=== PATIENT | female | born 1955 | race Caucasian/White ===

== ENCOUNTER 2022-03-01 12:36 | Emergency (ER) | payer MEDICARE, MEDICAID ==
[2022-03-01 13:14] LABS: Bilirubin Negative (Negative); Blood, Urine Negative (Negative); Clarity Clear (Clear); Glucose, Urine (Dipstick) Negative (Negative); Ketone, Urine Negative (Negative); Leukocyte Negative (Negative); Nitrite Negative (Negative); Protein, Urine (Dipstick) Negative (Neg-Trace); Urobilinogen 0.2 mg/dL (Less than 2)
[2022-03-01] MEDS ORDERED: Orphenadrine Citrate 60 MG/2 ML VIAL ONE (13:47)
== END 2022-03-01 14:05 | disposition home or self-care (01) ==
LOC: MADERS 12:36
DX: M54.50 Low back pain, unspecified (principal); I50.9 Heart failure, unspecified; I28.9 Disease of pulmonary vessels, unspecified; Z95.1 Presence of aortocoronary bypass graft
CPT/HCPCS: 81003; 96372; 99283; J2360

== ENCOUNTER 2022-03-02 14:49 | Outpatient (CLI) | payer MEDICARE, MEDICAID | END 2022-03-02 14:50 | disposition home or self-care (01) | LOC: MADRAD 14:49 | PROVIDERS: ATTEND Physician Assistant | DX: M54.9 Dorsalgia, unspecified (principal); M47.816 Spondylosis without myelopathy or radiculopathy, lumbar region; M47.812 Spondylosis without myelopathy or radiculopathy, cervical region | CPT/HCPCS: 72050; 72070; 72100 ==

== ENCOUNTER 2022-09-01 13:21 | Emergency (ER) | payer OTHER, MEDICAID ==
[2022-09-01] MEDS ORDERED: Sodium Chloride 0.9% 250 ML 250 ML ONE (13:53)
[2022-09-01] MEDS ORDERED: Cefepime 2 GM VIAL ONE (13:53)
[2022-09-01] MEDS ORDERED: Sodium Chloride 0.9% 100 ML ONE (13:53)
[2022-09-01 14:03] LABS: #Basophils 0.1 thou/uL (0.0-0.2); #Lymphocytes 0.9 thou/uL (1.20-3.40); #Monocytes 0.5 thou/uL (0.11-0.59); #Neutrophils 7.7 thou/uL (1.40-6.50); %Basophils 1.4 % (0.0-1.0); %Lymphocytes 9.4 % (21.0-51.0); %Monocytes 4.9 % (0.0-10.0); %Neutrophils 84.3 % (42.0-75.0); Anisocytosis SLIGHT = 6-15 cells (100X) (0-5/hpf); Hemoglobin 10.9 g/dL (12.0-16.0); Hypochromia SLIGHT = 6-15 cells (100X) (0-5/hpf); MDiff Complete? YES; Mean Corpuscular HGB CONC 30.3 g/dL (32.0-36.0); Mean Corpuscular Hemoglobin 23.8 pg (27.0-31.0); Mean Corpuscular Volume 78.5 fl (78.0-98.0); Mean Platelet Volume 8.5 fL (7.4-10.4); Platelet Count 208 10x3/uL (130-400); Platelet Morphology Comment Appears Adequate; RBC Distribution Width 16.8 % (11.5-14.5); Red Blood Cell (RBC) Count 4.59 mill/uL (4.20-5.40); White Blood Cell (WBC) Count 9.1 10x3/uL (4.8-10.8)
[2022-09-01 14:09] LABS: Base Excess-Venous -2.1 mmol/L (-2.0 to 3.0); Bicarbonate (HCO3v) 23.3 mmol/L (22.0-28.0); Calcium, Ionized 0.86 mmol/L (1.15-1.33); Chloride 104 mmol/L (98-107); Hemoglobin - Calc 12.3 g/dL (12.0-16.0); Sodium 135 mmol/L (138-145); T. Carbon Dioxide 24.5 mmol/L (22.0-28.0); vO2 Saturation-calc 96.2 % (60.0-85.0)
[2022-09-01 14:12] LABS: ALT (SGPT) 7 U/L (8-55); AST (SGOT) 20 U/L (5-34); Alkaline Phosphatase 115 U/L (40-110); Anion Gap 11 mmol/L (10-20); BUN (Urea Nitrogen) 13 mg/dL (9.8-20.1); Bilirubin, Total 0.7 mg/dL (0.2-1.2); Calc. Creatinine Clearance 0 mL/min (70-130); Calcium 8.7 mg/dL (7.8-10.44); Carbon Dioxide 23 mmol/L (23-31); Chloride 104 mmol/L (98-107); Estimated GFR 86; Globulin 3.9 g/dL (2.4-3.5); Glucose 59 mg/dL (80-115); Magnesium 1.7 mg/dL (1.6-2.6); Potassium 4.4 mmol/L (3.5-5.1); Protein, Total 6.9 g/dL (5.8-8.1); Sodium 134 mmol/L (136-145)
== END 2022-09-01 15:02 | disposition short-term general hospital (02) ==
LOC: MADERS 13:21
DX: I50.9 Heart failure, unspecified (principal); J18.9 Pneumonia, unspecified organism; A41.9 Sepsis, unspecified organism; J96.00 Acute respiratory failure, unspecified whether with hypoxia or hypercapnia; Z79.899 Other long term (current) drug therapy; Z87.891 Personal history of nicotine dependence
CPT/HCPCS: 71045; 80053; 82330; 82435; 82553; 82803; 83605; 83735; 83880; 84132; 84295; 84484; 85014; 85025; 87040; 93005; 96365; 96367; J0692; J3370; J3490; J7050

== ENCOUNTER 2022-09-26 18:49 | Emergency (ER) | payer OTHER, MEDICAID ==
[~2022-09-26 18:49] MED LIST: Iopamidol 370 76% 100 ML VIAL ONE; Sodium Chloride 0.9% 500 ML BAG ONE
[2022-09-26 19:45] LABS: #Basophils 0.1 thou/uL (0.0-0.2); #Lymphocytes 0.4 thou/uL (1.20-3.40); #Monocytes 0.6 thou/uL (0.11-0.59); #Neutrophils 4.1 thou/uL (1.40-6.50); %Basophils 1.1 % (0.0-1.0); %Eosinophils 0.4 % (0.0-10.0); %Lymphocytes 6.9 % (21.0-51.0); %Monocytes 11.2 % (0.0-10.0); %Neutrophils 80.4 % (42.0-75.0); Hemoglobin 7.5 g/dL (12.0-16.0); Mean Corpuscular Hemoglobin 24.3 pg (27.0-31.0); Mean Corpuscular Volume 78.2 fl (78.0-98.0); Mean Platelet Volume 11.2 fL (7.4-10.4); Platelet Count 107 10x3/uL (130-400); RBC Distribution Width 18.6 % (11.5-14.5); Red Blood Cell (RBC) Count 3.09 mill/uL (4.20-5.40); White Blood Cell (WBC) Count 5.1 10x3/uL (4.8-10.8)
[2022-09-26 19:47] LABS: Polychromasia SLIGHT = 2-3 cells (100X) (0-2/hpf)
[2022-09-26 19:48] LABS: Anisocytosis SLIGHT = 6-15 cells (100X) (0-5/hpf); Hypochromia MODERATE=16-30 cells (100X) (0-5/hpf); Platelet Morphology Comment Appears Decreased
[2022-09-26 19:50] LABS: ALT (SGPT) 11 U/L (8-55); AST (SGOT) 10 U/L (5-34); Albumin 2.8 g/dL (3.4-4.8); Alkaline Phosphatase 100 U/L (40-110); Anion Gap 16 mmol/L (10-20); BUN (Urea Nitrogen) 10 mg/dL (9.8-20.1); Bilirubin, Total 0.6 mg/dL (0.2-1.2); CK (CPK) 31 U/L (29-168); Calc. Creatinine Clearance 0 mL/min (70-130); Calcium 8.2 mg/dL (7.8-10.44); Carbon Dioxide 20 mmol/L (23-31); Chloride 98 mmol/L (98-107); Estimated GFR 85; Globulin 2.7 g/dL (2.4-3.5); Glucose 173 mg/dL (80-115); Lipase 7 U/L (8-78); Protein, Total 5.5 g/dL (5.8-8.1); Sodium 130 mmol/L (136-145)
[2022-09-26 20:06] LABS: CKMB 1.4 ng/mL (0-6.6)
[2022-09-26 21:24] LABS: Bilirubin Negative (Negative); Blood, Urine Small (Negative); Glucose, Urine (Dipstick) Negative (Negative); Ketone, Urine Negative (Negative); Leukocyte Moderate (Negative); Nitrite Negative (Negative); Protein, Urine (Dipstick) Trace mg/dL (Neg-Trace); Urobilinogen 0.2 mg/dL (Less than 2); pH, Urine 6.5 (5.0-9.0)
[2022-09-26 21:26] LABS: Clarity Cloudy (Clear); RBC/HPF 0-3 HPF (0-3); WBC/HPF Greater than 50 HPF (0-3)
[2022-09-26 21:27] LABS: Bacteria/HPF 3+ HPF (None Seen)
[2022-09-26] MEDS ORDERED: cefTRIAXone\\ROCEPHIN 1 GM VIAL ONE (21:34)
[2022-09-26] MEDS ORDERED: Sodium Chloride 0.9% 100 ML ONE (21:35)
[2022-09-27 00:18] LABS: CKMB 1.5 ng/mL (0-6.6)
[2022-09-27 03:42] LABS: Troponin I 0.138 ng/mL (< 0.028)
[2022-09-27] MEDS ORDERED: Lisinopril 10 MG TAB ONE (07:51)
[2022-09-27] MEDS ORDERED: Furosemide 40 MG TAB ONE ×3 (07:51→16:22)
[2022-09-27] MEDS ORDERED: Aspirin 325 MG TAB ONE (08:04)
[2022-09-27 08:43] LABS: Hemoglobin 7.9 g/dL (12.0-16.0); Mean Corpuscular HGB CONC 30.5 g/dL (32.0-36.0); Mean Corpuscular Hemoglobin 23.9 pg (27.0-31.0); Mean Corpuscular Volume 78.4 fl (78.0-98.0); Mean Platelet Volume 9.9 fL (7.4-10.4); Platelet Count 114 10x3/uL (130-400); RBC Distribution Width 18.5 % (11.5-14.5); Red Blood Cell (RBC) Count 3.32 mill/uL (4.20-5.40); White Blood Cell (WBC) Count 6.8 10x3/uL (4.8-10.8)
[2022-09-27 08:44] LABS: Manual Diff?? YES
[2022-09-27 08:58] LABS: MDiff Complete? YES; Neutrophil 69 % (42-75)
[2022-09-27 08:59] LABS: Band 5 % (5-11)
[2022-09-27 09:00] LABS: Eosinophils 2 % (0-10)
[2022-09-27 09:01] LABS: Anisocytosis SLIGHT = 6-15 cells (100X) (0-5/hpf)
[2022-09-27 09:02] LABS: Lymphocytes 10 % (21-51); Monocytes 14 % (0-10); Platelet Morphology Comment Appears Decreased
[2022-09-27 10:52] LABS: CKMB 1.6 ng/mL (0-6.6)
[2022-09-27 16:45] LABS: #Basophils 0.1 thou/uL (0.0-0.2); #Eosinphils 0.3 thou/uL (0.0-0.7); #Lymphocytes 0.9 thou/uL (1.20-3.40); #Monocytes 0.5 thou/uL (0.11-0.59); #Neutrophils 4.4 thou/uL (1.40-6.50); %Basophils 1.4 % (0.0-1.0); %Eosinophils 5.5 % (0.0-10.0); %Lymphocytes 13.7 % (21.0-51.0); %Monocytes 8.7 % (0.0-10.0); %Neutrophils 70.7 % (42.0-75.0); Anisocytosis SLIGHT = 6-15 cells (100X) (0-5/hpf); Hemoglobin 7.8 g/dL (12.0-16.0); Hypochromia SLIGHT = 6-15 cells (100X) (0-5/hpf); MDiff Complete? YES; Mean Corpuscular HGB CONC 30.9 g/dL (32.0-36.0); Mean Corpuscular Hemoglobin 24.1 pg (27.0-31.0); Mean Platelet Volume 10.6 fL (7.4-10.4); Microcytosis SLIGHT = 6-15 cells (100X) (0-5/hpf); Platelet Count 118 10x3/uL (130-400); Platelet Morphology Comment Appears Decreased; RBC Distribution Width 18.5 % (11.5-14.5); Red Blood Cell (RBC) Count 3.25 mill/uL (4.20-5.40); White Blood Cell (WBC) Count 6.2 10x3/uL (4.8-10.8)
[2022-09-27 16:49] LABS: ALT (SGPT) 11 U/L (8-55); AST (SGOT) 10 U/L (5-34); Albumin 2.8 g/dL (3.4-4.8); Alkaline Phosphatase 99 U/L (40-110); Anion Gap 16 mmol/L (10-20); BUN (Urea Nitrogen) 9 mg/dL (9.8-20.1); Bilirubin, Total 0.4 mg/dL (0.2-1.2); Calc. Creatinine Clearance 0 mL/min (70-130); Calcium 8.2 mg/dL (7.8-10.44); Carbon Dioxide 21 mmol/L (23-31); Chloride 102 mmol/L (98-107); Estimated GFR 86; Globulin 2.8 g/dL (2.4-3.5); Glucose 132 mg/dL (80-115); Magnesium 1.6 mg/dL (1.6-2.6); Potassium 3.7 mmol/L (3.5-5.1); Protein, Total 5.6 g/dL (5.8-8.1); Sodium 135 mmol/L (136-145)
[2022-09-27 17:15] LABS: Troponin I 0.124 ng/mL (< 0.028)
[2022-09-27 17:28] LABS: Base Excess-Venous -1.6 mmol/L (-2.0 to 3.0); Bicarbonate (HCO3v) 23.5 mmol/L (22.0-28.0); CO2 Tension (PvCO2) 40.6 mmHg (42.0-51.0); Chloride 98 mmol/L (98-107); Hemoglobin - Calc 8.7 g/dL (12.0-16.0); Potassium 3.4 mmol/L (3.5-5.1); Sodium 132 mmol/L (138-145); T. Carbon Dioxide 24.8 mmol/L (22.0-28.0); vO2 Saturation-calc 72.2 % (60.0-85.0)
[2022-09-27 17:29] LABS: Calcium, Ionized 0.91 mmol/L (1.15-1.33)
[2022-09-27 19:13] LABS: SARS-CoV-2 NAA Rapid Test Not Detected (NotDetected)
== END 2022-09-27 18:45 | disposition short-term general hospital (02) ==
LOC: MADERS 18:49
DX: S61.412A Laceration without foreign body of left hand, initial encounter (principal); S61.411A Laceration without foreign body of right hand, initial encounter; S00.83XA Contusion of other part of head, initial encounter; S30.1XXA Contusion of abdominal wall, initial encounter; D64.9 Anemia, unspecified; I50.9 Heart failure, unspecified; N39.0 Urinary tract infection, site not specified; Z87.891 Personal history of nicotine dependence; Z20.822 Contact with and (suspected) exposure to COVID-19; Z79.899 Other long term (current) drug therapy; W01.10XA Fall on same level from slipping, tripping and stumbling with subsequent striking against unspecified object, initial encounter
CPT/HCPCS: 70450; 70486; 71045; 71260; 72125; 74177; 80053; 82330; 82435; 82550; 82553; 82803; 83605; 83690; 83735; 83880; 84132; 84295; 84484 ×2; 85014; 85025 ×2; 93005 ×2; U0002; 36415; 81003; 81015; 82274; 96365; G0390; J0696; J3490; J7030; J7050; Q9967

== ENCOUNTER 2022-10-30 15:31 | Inpatient (IN) | payer OTHER, MEDICAID ==
[2022-10-30] MEDS ORDERED: Bisacodyl 5 MG TAB PO PRN (17:35)
[2022-10-30] MEDS ORDERED: Acetaminophen 325 MG TAB PO PRN (17:35)
[2022-10-30] MEDS ORDERED: Ipratropium/Albuterol 3 ML NEB NEB PRN (17:35)
[2022-10-30] MEDS ORDERED: Calcium Carbonate 500 MG ChewTAB PO PRN (17:35)
[2022-10-30 17:57] VITALS: BMI 27.5
[2022-10-30 19:51] VITALS: TEMP 97.6
[2022-10-30] MEDS: Rosuvastatin 10 MG TAB PO SCH (20:59)
[2022-10-30] MEDS: Hydroxychloroquine Sulfate 200 MG TAB PO SCH (21:00)
[2022-10-31 02:12] VITALS: BP 96/53
[2022-10-31 02:26] LABS: #Basophils 0.2 thou/uL (0.0-0.2); #Monocytes 0.7 thou/uL (0.11-0.59); #Neutrophils 3.7 thou/uL (1.40-6.50); %Basophils 2.4 % (0.0-1.0); %Eosinophils 0.3 % (0.0-10.0); %Lymphocytes 30.7 % (21.0-51.0); %Monocytes 10.2 % (0.0-10.0); %Neutrophils 56.4 % (42.0-75.0); Anisocytosis MODERATE=16-30 cells (100X) (0-5/hpf); Hemoglobin 7.7 g/dL (12.0-16.0); Hypochromia SLIGHT = 6-15 cells (100X) (0-5/hpf); MDiff Complete? YES; Mean Corpuscular HGB CONC 30.4 g/dL (32.0-36.0); Mean Corpuscular Hemoglobin 24.3 pg (27.0-31.0); Mean Corpuscular Volume 79.8 fl (78.0-98.0); Mean Platelet Volume 8.4 fL (7.4-10.4); Microcytosis SLIGHT = 6-15 cells (100X) (0-5/hpf); Platelet Count 208 10x3/uL (130-400); Polychromasia SLIGHT = 2-3 cells (100X) (0-2/hpf); RBC Distribution Width 18.9 % (11.5-14.5); Red Blood Cell (RBC) Count 3.19 mill/uL (4.20-5.40); White Blood Cell (WBC) Count 6.6 10x3/uL (4.8-10.8)
[2022-10-31] MEDS ORDERED: Leflunomide 10 mg Tablet PO SCH (09:00)
[2022-10-31] MEDS ORDERED: glipiZIDE 5 MG TAB PO SCH (09:00)
[2022-10-31] MEDS ORDERED: DULoxetine 20 MG CAP PO SCH (09:00)
[2022-10-31] MEDS ORDERED: Ezetimibe 10 MG TAB PO SCH (09:00)
[2022-10-31] MEDS ORDERED: Potassium Chloride 20 MEQ TAB PO SCH (09:00)
[2022-10-31] MEDS ORDERED: Aspirin Chewable 81 MG TAB PO SCH (09:00)
[2022-10-31] MEDS ORDERED: predniSONE 5 MG TAB PO SCH (09:00)
[2022-10-31] MEDS ORDERED: Furosemide 40 MG TAB PO SCH (09:00)
[2022-10-31] MEDS ORDERED: Lisinopril 5 MG TAB PO SCH (09:00)
[2022-10-31] MEDS ORDERED: Magnesium Oxide 400 MG TAB PO SCH (09:00)
[2022-10-31] MEDS ORDERED: Prasugrel 10 MG TAB PO SCH (09:00)
[2022-10-31] MEDS ORDERED: Docusate 100 MG CAP PO SCH (09:00)
== END 2022-10-31 05:13 | disposition swing bed (61) | DRG 948 ==
LOC: MADMS 15:57
PROVIDERS: ADMIT Family Medicine; ATTEND Family Medicine
DX: R53.1 Weakness (principal); I50.22 Chronic systolic (congestive) heart failure; I11.0 Hypertensive heart disease with heart failure; M06.9 Rheumatoid arthritis, unspecified; E11.51 Type 2 diabetes mellitus with diabetic peripheral angiopathy without gangrene; I25.10 Atherosclerotic heart disease of native coronary artery without angina pectoris; Z88.6 Allergy status to analgesic agent; Z88.5 Allergy status to narcotic agent; Z88.8 Allergy status to other drugs, medicaments and biological substances; Z79.899 Other long term (current) drug therapy; Z79.82 Long term (current) use of aspirin; Z79.52 Long term (current) use of systemic steroids; Z95.1 Presence of aortocoronary bypass graft; Z90.49 Acquired absence of other specified parts of digestive tract; Z87.440 Personal history of urinary (tract) infections; Z90.711 Acquired absence of uterus with remaining cervical stump; Z87.891 Personal history of nicotine dependence
CPT/HCPCS: 36416; 80053; 83735; 86850; 86900; 86901; 87324; 87449; 87493; C9113; J7030

== ENCOUNTER 2022-10-31 05:22 | Emergency (ER) | payer OTHER, MEDICAID ==
[2022-10-31 05:48] LABS: Hemoglobin 7.3 g/dL (12.0-16.0)
[2022-10-31] MEDS ORDERED: Pantoprazole 40 MG VIAL ONE (06:20)
[2022-10-31] MEDS ORDERED: Sodium Chloride 0.9% 50 ML ONE (06:21)
[2022-10-31] MEDS ORDERED: Sodium Chloride 0.9% 500 ML BAG ONE (06:42)
[2022-10-31 07:32] LABS: AST (SGOT) 12 U/L (5-34); Albumin 2.7 g/dL (3.4-4.8); Anion Gap 12 mmol/L (10-20); BUN (Urea Nitrogen) 13 mg/dL (9.8-20.1); Bilirubin, Total 0.4 mg/dL (0.2-1.2); Calc. Creatinine Clearance 0 mL/min (70-130); Calcium 8.5 mg/dL (7.8-10.44); Carbon Dioxide 25 mmol/L (23-31); Chloride 108 mmol/L (98-107); Estimated GFR 95; Globulin 2.2 g/dL (2.4-3.5); Glucose 139 mg/dL (80-115); Potassium 4.2 mmol/L (3.5-5.1); Protein, Total 4.9 g/dL (5.8-8.1); Sodium 141 mmol/L (136-145)
[2022-10-31 07:39] LABS: ALT (SGPT) 9 U/L (8-55); Alkaline Phosphatase 78 U/L (40-110)
[2022-10-31 07:40] LABS: Magnesium 1.6 mg/dL (1.6-2.6)
== END 2022-10-31 07:18 | disposition short-term general hospital (02) ==
LOC: MADERS 05:22
DX: K92.2 Gastrointestinal hemorrhage, unspecified (principal); D64.9 Anemia, unspecified; E11.9 Type 2 diabetes mellitus without complications; J44.9 Chronic obstructive pulmonary disease, unspecified; I11.0 Hypertensive heart disease with heart failure; I50.9 Heart failure, unspecified; Z87.891 Personal history of nicotine dependence; Z95.1 Presence of aortocoronary bypass graft; Z79.84 Long term (current) use of oral hypoglycemic drugs; Z79.899 Other long term (current) drug therapy
CPT/HCPCS: 80053; 83735; 86850; 86900; 86901; 87324; 87449; 87493; C9113

== ENCOUNTER 2022-11-09 15:44 | Inpatient (IN) | payer OTHER, MEDICAID ==
[2022-11-09] MEDS ORDERED: Ipratropium/Albuterol 3 ML NEB NEB PRN (17:06)
[2022-11-09] MEDS ORDERED: Calcium Carbonate 500 MG ChewTAB PO PRN (17:06)
[2022-11-09] MEDS ORDERED: Bisacodyl 5 MG TAB PO PRN (17:06)
[2022-11-09] MEDS: Hydroxychloroquine Sulfate 200 MG TAB PO SCH (21:49)
[2022-11-09] MEDS: Rosuvastatin 10 MG TAB PO SCH (21:49)
[2022-11-10] MEDS: Potassium Chloride 20 MEQ TAB PO SCH (09:08)
[2022-11-10] MEDS: Leflunomide 10 mg Tablet PO SCH (09:08)
[2022-11-10] MEDS: Ezetimibe 10 MG TAB PO SCH (09:08)
[2022-11-10] MEDS: Lisinopril 5 MG TAB PO SCH (09:08)
[2022-11-10] MEDS: Magnesium Oxide 400 MG TAB PO SCH (09:09)
[2022-11-10] MEDS: glipiZIDE 5 MG TAB PO SCH (09:09)
[2022-11-10] MEDS: Hydroxychloroquine Sulfate 200 MG TAB PO SCH ×2 (09:10→20:19)
[2022-11-10] MEDS: Docusate 100 MG CAP PO SCH (09:10)
[2022-11-10] MEDS: Furosemide 40 MG TAB PO SCH (09:10)
[2022-11-10] MEDS: predniSONE 5 MG TAB PO SCH (09:10)
[2022-11-10] MEDS: DULoxetine 20 MG CAP PO SCH (09:10)
[2022-11-10] MEDS: Aspirin Chewable 81 MG TAB PO SCH (09:10)
[2022-11-10] MEDS: Prasugrel 10 MG TAB PO SCH (09:10)
[2022-11-10] MEDS: Rosuvastatin 10 MG TAB PO SCH (20:18)
[2022-11-11] MEDS: glipiZIDE 5 MG TAB PO SCH (08:00)
[2022-11-11] MEDS: Potassium Chloride 20 MEQ TAB PO SCH (08:00)
[2022-11-11] MEDS: DULoxetine 20 MG CAP PO SCH (08:00)
[2022-11-11] MEDS: predniSONE 5 MG TAB PO SCH (08:00)
[2022-11-11] MEDS: Prasugrel 10 MG TAB PO SCH (08:00)
[2022-11-11] MEDS: Ezetimibe 10 MG TAB PO SCH (08:00)
[2022-11-11] MEDS: Aspirin Chewable 81 MG TAB PO SCH (08:01)
[2022-11-11] MEDS: Lisinopril 5 MG TAB PO SCH (08:01)
[2022-11-11] MEDS: Furosemide 40 MG TAB PO SCH (08:04)
[2022-11-11] MEDS: Magnesium Oxide 400 MG TAB PO SCH (08:04)
[2022-11-11] MEDS: Hydroxychloroquine Sulfate 200 MG TAB PO SCH ×2 (08:04→20:27)
[2022-11-11] MEDS: Leflunomide 10 mg Tablet PO SCH (08:04)
[2022-11-11] MEDS: Docusate 100 MG CAP PO SCH (08:05)
[2022-11-11] MEDS ORDERED: Dextrose 50% Abboject 50 ML SYRINGE IVP PRN (15:15)
[2022-11-11] MEDS ORDERED: Dextrose 5% in Water 1,000 ML IV PRN (15:15)
[2022-11-11] MEDS ORDERED: Dextrose 50% Abboject 50 ML SYRINGE SLOW IVP PRN (15:34)
[2022-11-11] MEDS ORDERED: HumaLOG 300 UNITS/3 ML VIAL SC PRN ×2 (15:34)
[2022-11-11] MEDS: Rosuvastatin 10 MG TAB PO SCH (20:26)
[2022-11-11] MEDS: Dextrose 5% in Water 1,000 ML IV SCH ×2 (21:30→22:11)
[2022-11-12] MEDS: Furosemide 40 MG TAB PO SCH (09:18)
[2022-11-12] MEDS: Potassium Chloride 20 MEQ TAB PO SCH (09:18)
[2022-11-12] MEDS: Prasugrel 10 MG TAB PO SCH (09:18)
[2022-11-12] MEDS: Aspirin Chewable 81 MG TAB PO SCH (09:18)
[2022-11-12] MEDS: Magnesium Oxide 400 MG TAB PO SCH (09:18)
[2022-11-12] MEDS: DULoxetine 20 MG CAP PO SCH (09:18)
[2022-11-12] MEDS: Ezetimibe 10 MG TAB PO SCH (09:18)
[2022-11-12] MEDS: Lisinopril 5 MG TAB PO SCH (09:19)
[2022-11-12] MEDS: predniSONE 5 MG TAB PO SCH (09:19)
[2022-11-12] MEDS: Hydroxychloroquine Sulfate 200 MG TAB PO SCH ×2 (09:19→21:24)
[2022-11-12] MEDS: Leflunomide 10 mg Tablet PO SCH (09:19)
[2022-11-12] MEDS: Docusate 100 MG CAP PO SCH (09:19)
[2022-11-12] MEDS ORDERED: Dextrose 5% in Water 1,000 ML IV SCH (12:15)
[2022-11-12] MEDS: Rosuvastatin 10 MG TAB PO SCH (21:24)
[2022-11-13] MEDS: Hydroxychloroquine Sulfate 200 MG TAB PO SCH ×2 (08:57→20:38)
[2022-11-13] MEDS: Prasugrel 10 MG TAB PO SCH (08:57)
[2022-11-13] MEDS: Aspirin Chewable 81 MG TAB PO SCH (08:57)
[2022-11-13] MEDS: Potassium Chloride 20 MEQ TAB PO SCH (08:57)
[2022-11-13] MEDS: Leflunomide 10 mg Tablet PO SCH (08:58)
[2022-11-13] MEDS: Furosemide 40 MG TAB PO SCH (08:58)
[2022-11-13] MEDS: Docusate 100 MG CAP PO SCH (08:58)
[2022-11-13] MEDS: Magnesium Oxide 400 MG TAB PO SCH (08:58)
[2022-11-13] MEDS: Ezetimibe 10 MG TAB PO SCH (08:58)
[2022-11-13] MEDS: predniSONE 5 MG TAB PO SCH (08:58)
[2022-11-13] MEDS: DULoxetine 20 MG CAP PO SCH (08:58)
[2022-11-13] MEDS: Lisinopril 5 MG TAB PO SCH (09:02)
[2022-11-13] MEDS: Acetaminophen 325 MG TAB PO PRN (18:24)
[2022-11-13] MEDS: Rosuvastatin 10 MG TAB PO SCH (20:38)
[2022-11-14] MEDS: DULoxetine 20 MG CAP PO SCH (08:13)
[2022-11-14] MEDS: Furosemide 40 MG TAB PO SCH (08:13)
[2022-11-14] MEDS: Potassium Chloride 20 MEQ TAB PO SCH (08:13)
[2022-11-14] MEDS: Aspirin Chewable 81 MG TAB PO SCH (08:13)
[2022-11-14] MEDS: Ezetimibe 10 MG TAB PO SCH (08:13)
[2022-11-14] MEDS: Magnesium Oxide 400 MG TAB PO SCH (08:13)
[2022-11-14] MEDS: Leflunomide 10 mg Tablet PO SCH (08:14)
[2022-11-14] MEDS: Hydroxychloroquine Sulfate 200 MG TAB PO SCH ×2 (08:14→20:30)
[2022-11-14] MEDS: predniSONE 5 MG TAB PO SCH (08:14)
[2022-11-14] MEDS: Lisinopril 5 MG TAB PO SCH (08:14)
[2022-11-14] MEDS: Docusate 100 MG CAP PO SCH (08:14)
[2022-11-14] MEDS: Prasugrel 10 MG TAB PO SCH (08:14)
[2022-11-14] MEDS: Rosuvastatin 10 MG TAB PO SCH (20:30)
[2022-11-14] MEDS: Acetaminophen 325 MG TAB PO PRN (20:30)
[2022-11-15 05:18] LABS: #Basophils 0.2 thou/uL (0.0-0.2); #Lymphocytes 1.6 thou/uL (1.20-3.40); #Monocytes 0.8 thou/uL (0.11-0.59); #Neutrophils 5.3 thou/uL (1.40-6.50); %Eosinophils 0.1 % (0.0-10.0); %Lymphocytes 20.5 % (21.0-51.0); %Monocytes 10.1 % (0.0-10.0); %Neutrophils 67.4 % (42.0-75.0); Hemoglobin 9.3 g/dL (12.0-16.0); Mean Corpuscular HGB CONC 32.2 g/dL (32.0-36.0); Mean Corpuscular Hemoglobin 25.5 pg (27.0-31.0); Mean Corpuscular Volume 79.1 fl (78.0-98.0); Mean Platelet Volume 8.4 fL (7.4-10.4); Platelet Count 252 10x3/uL (130-400); RBC Distribution Width 17.9 % (11.5-14.5); Red Blood Cell (RBC) Count 3.64 mill/uL (4.20-5.40); White Blood Cell (WBC) Count 7.9 10x3/uL (4.8-10.8)
[2022-11-15 05:51] LABS: ALT (SGPT) 18 U/L (8-55); AST (SGOT) 12 U/L (5-34); Albumin 3.5 g/dL (3.4-4.8); Alkaline Phosphatase 74 U/L (40-110); Anion Gap 16 mmol/L (10-20); BUN (Urea Nitrogen) 20 mg/dL (9.8-20.1); Bilirubin, Total 0.6 mg/dL (0.2-1.2); Calc. Creatinine Clearance 66 mL/min (70-130); Calcium 8.9 mg/dL (7.8-10.44); Carbon Dioxide 21 mmol/L (23-31); Chloride 104 mmol/L (98-107); Estimated GFR 71; Globulin 2.6 g/dL (2.4-3.5); Glucose 104 mg/dL (80-115); Potassium 3.4 mmol/L (3.5-5.1); Protein, Total 6.1 g/dL (5.8-8.1); Sodium 138 mmol/L (136-145)
[2022-11-15 07:00] LABS: Troponin I 0.038 ng/mL (< 0.028)
[2022-11-15] MEDS: Hydroxychloroquine Sulfate 200 MG TAB PO SCH ×2 (08:16→20:17)
[2022-11-15] MEDS: Prasugrel 10 MG TAB PO SCH (08:16)
[2022-11-15] MEDS: Magnesium Oxide 400 MG TAB PO SCH (08:16)
[2022-11-15] MEDS: Leflunomide 10 mg Tablet PO SCH (08:16)
[2022-11-15] MEDS: Aspirin Chewable 81 MG TAB PO SCH (08:16)
[2022-11-15] MEDS: DULoxetine 20 MG CAP PO SCH (08:16)
[2022-11-15] MEDS: predniSONE 5 MG TAB PO SCH (08:17)
[2022-11-15] MEDS: Ezetimibe 10 MG TAB PO SCH (08:17)
[2022-11-15] MEDS: Potassium Chloride 10 MEQ TAB PO SCH (08:17)
[2022-11-15] MEDS: Furosemide 20 MG TAB PO SCH (08:17)
[2022-11-15] MEDS: Docusate 100 MG CAP PO SCH (08:18)
[2022-11-15] MEDS: Lisinopril 5 MG TAB PO SCH (08:23)
[2022-11-15] MEDS: Acetaminophen 325 MG TAB PO PRN (09:11)
[2022-11-15 10:04] LABS: Troponin I 0.034 ng/mL (< 0.028)
[2022-11-15] MEDS: Rosuvastatin 10 MG TAB PO SCH (20:17)
[2022-11-16] MEDS: predniSONE 5 MG TAB PO SCH (08:32)
[2022-11-16] MEDS: Aspirin Chewable 81 MG TAB PO SCH (08:32)
[2022-11-16] MEDS: Ezetimibe 10 MG TAB PO SCH (08:32)
[2022-11-16] MEDS: Hydroxychloroquine Sulfate 200 MG TAB PO SCH ×2 (08:33→20:59)
[2022-11-16] MEDS: DULoxetine 20 MG CAP PO SCH (08:33)
[2022-11-16] MEDS: Potassium Chloride 10 MEQ TAB PO SCH (08:33)
[2022-11-16] MEDS: Docusate 100 MG CAP PO SCH (08:33)
[2022-11-16] MEDS: Prasugrel 10 MG TAB PO SCH (08:33)
[2022-11-16] MEDS: Lisinopril 5 MG TAB PO SCH (08:33)
[2022-11-16] MEDS: Leflunomide 10 mg Tablet PO SCH (08:33)
[2022-11-16] MEDS: Magnesium Oxide 400 MG TAB PO SCH (08:33)
[2022-11-16] MEDS: Furosemide 20 MG TAB PO SCH (10:43)
[2022-11-16] MEDS: Rosuvastatin 10 MG TAB PO SCH (20:59)
[2022-11-17] MEDS: predniSONE 5 MG TAB PO SCH (08:23)
[2022-11-17] MEDS: Aspirin Chewable 81 MG TAB PO SCH (08:23)
[2022-11-17] MEDS: Potassium Chloride 10 MEQ TAB PO SCH (08:23)
[2022-11-17] MEDS: Hydroxychloroquine Sulfate 200 MG TAB PO SCH ×2 (08:24→20:31)
[2022-11-17] MEDS: Leflunomide 10 mg Tablet PO SCH (08:24)
[2022-11-17] MEDS: Ezetimibe 10 MG TAB PO SCH (08:24)
[2022-11-17] MEDS: Prasugrel 10 MG TAB PO SCH (08:24)
[2022-11-17] MEDS: DULoxetine 20 MG CAP PO SCH (08:24)
[2022-11-17] MEDS: Magnesium Oxide 400 MG TAB PO SCH (08:24)
[2022-11-17] MEDS: Docusate 100 MG CAP PO SCH (08:25)
[2022-11-17] MEDS ORDERED: Furosemide 20 MG TAB PO SCH (09:00)
[2022-11-17] MEDS: Lisinopril 5 MG TAB PO SCH (13:31)
[2022-11-17] MEDS: Rosuvastatin 10 MG TAB PO SCH (20:32)
[2022-11-17] MEDS: Metoprolol Tartrate 50 MG TAB PO SCH (22:27)
[2022-11-18] MEDS: Prasugrel 10 MG TAB PO SCH (08:40)
[2022-11-18] MEDS: Ezetimibe 10 MG TAB PO SCH (08:40)
[2022-11-18] MEDS: Aspirin Chewable 81 MG TAB PO SCH (08:40)
[2022-11-18] MEDS: Potassium Chloride 10 MEQ TAB PO SCH (08:41)
[2022-11-18] MEDS: predniSONE 5 MG TAB PO SCH (08:41)
[2022-11-18] MEDS: Magnesium Oxide 400 MG TAB PO SCH (08:41)
[2022-11-18] MEDS: Hydroxychloroquine Sulfate 200 MG TAB PO SCH ×2 (08:42→21:22)
[2022-11-18] MEDS: Docusate 100 MG CAP PO SCH (08:42)
[2022-11-18] MEDS: DULoxetine 20 MG CAP PO SCH (08:42)
[2022-11-18] MEDS: Leflunomide 10 mg Tablet PO SCH (08:43)
[2022-11-18] MEDS: Metoprolol Tartrate 50 MG TAB PO SCH (08:44)
[2022-11-18] MEDS: Furosemide 20 MG TAB PO SCH (12:07)
[2022-11-18] MEDS: Rosuvastatin 10 MG TAB PO SCH (21:22)
[2022-11-19] MEDS: Metoprolol Tartrate 50 MG TAB PO SCH (00:21)
[2022-11-19] MEDS: predniSONE 5 MG TAB PO SCH (09:10)
[2022-11-19] MEDS: Hydroxychloroquine Sulfate 200 MG TAB PO SCH ×2 (09:10→20:33)
[2022-11-19] MEDS: Aspirin Chewable 81 MG TAB PO SCH (09:10)
[2022-11-19] MEDS: DULoxetine 20 MG CAP PO SCH (09:10)
[2022-11-19] MEDS: Prasugrel 10 MG TAB PO SCH (09:10)
[2022-11-19] MEDS: Magnesium Oxide 400 MG TAB PO SCH (09:10)
[2022-11-19] MEDS: Metoprolol Tartrate 25 MG TAB PO SCH ×2 (09:11→20:33)
[2022-11-19] MEDS: Leflunomide 10 mg Tablet PO SCH (09:11)
[2022-11-19] MEDS: Potassium Chloride 10 MEQ TAB PO SCH (09:11)
[2022-11-19] MEDS: Docusate 100 MG CAP PO SCH (09:11)
[2022-11-19] MEDS: Ezetimibe 10 MG TAB PO SCH (09:11)
[2022-11-19] MEDS: Furosemide 20 MG TAB PO SCH (12:24)
[2022-11-19] MEDS: Rosuvastatin 10 MG TAB PO SCH (20:33)
[2022-11-20] MEDS: Aspirin Chewable 81 MG TAB PO SCH (08:30)
[2022-11-20] MEDS: Hydroxychloroquine Sulfate 200 MG TAB PO SCH ×2 (08:30→20:31)
[2022-11-20] MEDS: Ezetimibe 10 MG TAB PO SCH (08:30)
[2022-11-20] MEDS: Potassium Chloride 10 MEQ TAB PO SCH (08:30)
[2022-11-20] MEDS: Prasugrel 10 MG TAB PO SCH (08:30)
[2022-11-20] MEDS: Magnesium Oxide 400 MG TAB PO SCH (08:30)
[2022-11-20] MEDS: Metoprolol Tartrate 25 MG TAB PO SCH ×2 (08:30→20:32)
[2022-11-20] MEDS: DULoxetine 20 MG CAP PO SCH (08:31)
[2022-11-20] MEDS: Docusate 100 MG CAP PO SCH (08:31)
[2022-11-20] MEDS: Leflunomide 10 mg Tablet PO SCH (08:31)
[2022-11-20] MEDS: predniSONE 5 MG TAB PO SCH (08:31)
[2022-11-20] MEDS: Furosemide 20 MG TAB PO SCH (13:10)
[2022-11-20] MEDS: Rosuvastatin 10 MG TAB PO SCH (20:35)
[2022-11-21] MEDS: Magnesium Oxide 400 MG TAB PO SCH (09:00)
[2022-11-21] MEDS: Aspirin Chewable 81 MG TAB PO SCH (09:00)
[2022-11-21] MEDS: Ezetimibe 10 MG TAB PO SCH (09:00)
[2022-11-21] MEDS: Potassium Chloride 10 MEQ TAB PO SCH (09:00)
[2022-11-21] MEDS: DULoxetine 20 MG CAP PO SCH (09:00)
[2022-11-21] MEDS: Leflunomide 10 mg Tablet PO SCH (09:00)
[2022-11-21] MEDS: predniSONE 5 MG TAB PO SCH (09:00)
[2022-11-21] MEDS: Hydroxychloroquine Sulfate 200 MG TAB PO SCH ×2 (09:00→19:58)
[2022-11-21] MEDS: Docusate 100 MG CAP PO SCH (09:00)
[2022-11-21] MEDS: Prasugrel 10 MG TAB PO SCH (09:00)
[2022-11-21] MEDS: Acetaminophen 325 MG TAB PO PRN (09:01)
[2022-11-21] MEDS: Metoprolol Tartrate 25 MG TAB PO SCH ×2 (09:08→20:02)
[2022-11-21] MEDS: Furosemide 20 MG TAB PO SCH (12:56)
[2022-11-21] MEDS: Rosuvastatin 10 MG TAB PO SCH (19:58)
[2022-11-22] MEDS: Ezetimibe 10 MG TAB PO SCH (08:37)
[2022-11-22] MEDS: Hydroxychloroquine Sulfate 200 MG TAB PO SCH ×2 (08:38→21:11)
[2022-11-22] MEDS: DULoxetine 20 MG CAP PO SCH (08:38)
[2022-11-22] MEDS: Leflunomide 10 mg Tablet PO SCH (08:38)
[2022-11-22] MEDS: Prasugrel 10 MG TAB PO SCH (08:38)
[2022-11-22] MEDS: Aspirin Chewable 81 MG TAB PO SCH (08:38)
[2022-11-22] MEDS: Metoprolol Tartrate 25 MG TAB PO SCH ×2 (08:38→21:12)
[2022-11-22] MEDS: Magnesium Oxide 400 MG TAB PO SCH (08:38)
[2022-11-22] MEDS: Potassium Chloride 10 MEQ TAB PO SCH (08:38)
[2022-11-22] MEDS: predniSONE 5 MG TAB PO SCH (08:38)
[2022-11-22] MEDS: Docusate 100 MG CAP PO SCH (08:39)
[2022-11-22] MEDS ORDERED: Loratadine 10 MG TAB PO SCH (10:45)
[2022-11-22] MEDS: Fluticasone Propionate Nasal Spray 16 gm Bottle NASAL PRN (11:54)
[2022-11-22] MEDS: Furosemide 20 MG TAB PO SCH (11:55)
[2022-11-22] MEDS: Rosuvastatin 10 MG TAB PO SCH (21:11)
[2022-11-23] MEDS: Hydroxychloroquine Sulfate 200 MG TAB PO SCH ×2 (08:19→20:25)
[2022-11-23] MEDS: Docusate 100 MG CAP PO SCH (08:19)
[2022-11-23] MEDS: Aspirin Chewable 81 MG TAB PO SCH (08:19)
[2022-11-23] MEDS: Loratadine 10 MG TAB PO SCH (08:19)
[2022-11-23] MEDS: Prasugrel 10 MG TAB PO SCH (08:19)
[2022-11-23] MEDS: DULoxetine 20 MG CAP PO SCH (08:19)
[2022-11-23] MEDS: predniSONE 5 MG TAB PO SCH (08:19)
[2022-11-23] MEDS: Leflunomide 10 mg Tablet PO SCH (08:20)
[2022-11-23] MEDS: Ezetimibe 10 MG TAB PO SCH (08:20)
[2022-11-23] MEDS: Potassium Chloride 10 MEQ TAB PO SCH (08:20)
[2022-11-23] MEDS: Magnesium Oxide 400 MG TAB PO SCH (08:20)
[2022-11-23] MEDS: Metoprolol Tartrate 25 MG TAB PO SCH ×2 (08:20→20:25)
[2022-11-23] MEDS: Furosemide 20 MG TAB PO SCH (12:59)
[2022-11-23] MEDS: Rosuvastatin 10 MG TAB PO SCH (20:25)
[2022-11-24] MEDS: Magnesium Oxide 400 MG TAB PO SCH (08:30)
[2022-11-24] MEDS: Leflunomide 10 mg Tablet PO SCH (08:30)
[2022-11-24] MEDS: Ezetimibe 10 MG TAB PO SCH (08:30)
[2022-11-24] MEDS: Potassium Chloride 10 MEQ TAB PO SCH (08:30)
[2022-11-24] MEDS: Hydroxychloroquine Sulfate 200 MG TAB PO SCH ×2 (08:30→20:39)
[2022-11-24] MEDS: Docusate 100 MG CAP PO SCH (08:30)
[2022-11-24] MEDS: predniSONE 5 MG TAB PO SCH (08:30)
[2022-11-24] MEDS: Loratadine 10 MG TAB PO SCH (08:30)
[2022-11-24] MEDS: Aspirin Chewable 81 MG TAB PO SCH (08:30)
[2022-11-24] MEDS: Prasugrel 10 MG TAB PO SCH (08:30)
[2022-11-24] MEDS: DULoxetine 20 MG CAP PO SCH (08:30)
[2022-11-24] MEDS: Fluticasone Propionate Nasal Spray 16 gm Bottle NASAL PRN (08:39)
[2022-11-24] MEDS: Metoprolol Tartrate 25 MG TAB PO SCH ×2 (08:43→20:39)
[2022-11-24] MEDS: Furosemide 20 MG TAB PO SCH (12:21)
[2022-11-24] MEDS: Rosuvastatin 10 MG TAB PO SCH (20:39)
[2022-11-25] MEDS: Loratadine 10 MG TAB PO SCH (09:04)
[2022-11-25] MEDS: Aspirin Chewable 81 MG TAB PO SCH (09:04)
[2022-11-25] MEDS: DULoxetine 20 MG CAP PO SCH (09:04)
[2022-11-25] MEDS: Ezetimibe 10 MG TAB PO SCH (09:05)
[2022-11-25] MEDS: Docusate 100 MG CAP PO SCH (09:05)
[2022-11-25] MEDS: Leflunomide 10 mg Tablet PO SCH (09:05)
[2022-11-25] MEDS: Magnesium Oxide 400 MG TAB PO SCH (09:05)
[2022-11-25] MEDS: Hydroxychloroquine Sulfate 200 MG TAB PO SCH ×2 (09:05→20:37)
[2022-11-25] MEDS: predniSONE 5 MG TAB PO SCH (09:05)
[2022-11-25] MEDS: Metoprolol Tartrate 25 MG TAB PO SCH ×2 (09:05→20:37)
[2022-11-25] MEDS: Prasugrel 10 MG TAB PO SCH (09:05)
[2022-11-25] MEDS: Potassium Chloride 10 MEQ TAB PO SCH (09:05)
[2022-11-25] MEDS: Furosemide 20 MG TAB PO SCH (12:48)
[2022-11-25] MEDS: Rosuvastatin 10 MG TAB PO SCH (20:38)
[2022-11-26] MEDS: Loratadine 10 MG TAB PO SCH (09:22)
[2022-11-26] MEDS: Leflunomide 10 mg Tablet PO SCH (09:22)
[2022-11-26] MEDS: Potassium Chloride 10 MEQ TAB PO SCH (09:22)
[2022-11-26] MEDS: DULoxetine 20 MG CAP PO SCH (09:22)
[2022-11-26] MEDS: Aspirin Chewable 81 MG TAB PO SCH (09:22)
[2022-11-26] MEDS: Prasugrel 10 MG TAB PO SCH (09:22)
[2022-11-26] MEDS: Metoprolol Tartrate 25 MG TAB PO SCH ×2 (09:23→22:44)
[2022-11-26] MEDS: Docusate 100 MG CAP PO SCH (09:23)
[2022-11-26] MEDS: Magnesium Oxide 400 MG TAB PO SCH (09:23)
[2022-11-26] MEDS: Ezetimibe 10 MG TAB PO SCH (09:23)
[2022-11-26] MEDS: Hydroxychloroquine Sulfate 200 MG TAB PO SCH ×2 (09:23→20:04)
[2022-11-26] MEDS: predniSONE 5 MG TAB PO SCH (09:23)
[2022-11-26] MEDS: Furosemide 20 MG TAB PO SCH (12:33)
[2022-11-26] MEDS: Rosuvastatin 10 MG TAB PO SCH (20:04)
[2022-11-27] MEDS: Acetaminophen 325 MG TAB PO PRN (04:56)
[2022-11-27] MEDS: Fluticasone Propionate Nasal Spray 16 gm Bottle NASAL PRN (08:15)
[2022-11-27] MEDS: Docusate 100 MG CAP PO SCH (08:15)
[2022-11-27] MEDS: Prasugrel 10 MG TAB PO SCH (08:15)
[2022-11-27] MEDS: Aspirin Chewable 81 MG TAB PO SCH (08:15)
[2022-11-27] MEDS: Magnesium Oxide 400 MG TAB PO SCH (08:16)
[2022-11-27] MEDS: Hydroxychloroquine Sulfate 200 MG TAB PO SCH ×2 (08:16→20:42)
[2022-11-27] MEDS: Leflunomide 10 mg Tablet PO SCH (08:16)
[2022-11-27] MEDS: Potassium Chloride 10 MEQ TAB PO SCH (08:16)
[2022-11-27] MEDS: DULoxetine 20 MG CAP PO SCH (08:16)
[2022-11-27] MEDS: Metoprolol Tartrate 25 MG TAB PO SCH ×3 (08:17→20:39)
[2022-11-27] MEDS: predniSONE 5 MG TAB PO SCH (08:17)
[2022-11-27] MEDS: Ezetimibe 10 MG TAB PO SCH (08:17)
[2022-11-27] MEDS: Loratadine 10 MG TAB PO SCH (08:17)
[2022-11-27] MEDS ORDERED: Acetaminophen 325 MG TAB PO PRN (12:43)
[2022-11-27] MEDS: Furosemide 20 MG TAB PO SCH (14:35)
[2022-11-27 14:58] LABS: Anion Gap 14 mmol/L (10-20); BUN (Urea Nitrogen) 16 mg/dL (9.8-20.1); Calc. Creatinine Clearance 58 mL/min (70-130); Calcium 9.1 mg/dL (7.8-10.44); Carbon Dioxide 22 mmol/L (23-31); Chloride 106 mmol/L (98-107); Estimated GFR 63; Glucose 362 mg/dL (80-115); Potassium 4.3 mmol/L (3.5-5.1); Sodium 138 mmol/L (136-145)
[2022-11-27 15:10] LABS: Hemoglobin 9.1 g/dL (12.0-16.0); Mean Corpuscular HGB CONC 31.2 g/dL (32.0-36.0); Mean Corpuscular Hemoglobin 23.6 pg (27.0-31.0); Mean Corpuscular Volume 75.8 fl (78.0-98.0); Mean Platelet Volume 8.8 fL (7.4-10.4); Platelet Count 212 10x3/uL (130-400); Red Blood Cell (RBC) Count 3.85 mill/uL (4.20-5.40); White Blood Cell (WBC) Count 5.3 10x3/uL (4.8-10.8)
[2022-11-27] MEDS: Rosuvastatin 10 MG TAB PO SCH (20:38)
[2022-11-28 06:00] VITALS: BMI 25.6
[2022-11-28 08:17] VITALS: BP 106/55; TEMP 98
[2022-11-28] MEDS: Fluticasone Propionate Nasal Spray 16 gm Bottle NASAL PRN (08:42)
[2022-11-28] MEDS: Docusate 100 MG CAP PO SCH (08:43)
[2022-11-28] MEDS: Aspirin Chewable 81 MG TAB PO SCH (08:43)
[2022-11-28] MEDS: Prasugrel 10 MG TAB PO SCH (08:43)
[2022-11-28] MEDS: Loratadine 10 MG TAB PO SCH (08:43)
[2022-11-28] MEDS: Ezetimibe 10 MG TAB PO SCH (08:43)
[2022-11-28] MEDS: Magnesium Oxide 400 MG TAB PO SCH (08:43)
[2022-11-28] MEDS: Leflunomide 10 mg Tablet PO SCH (08:43)
[2022-11-28] MEDS: Hydroxychloroquine Sulfate 200 MG TAB PO SCH (08:44)
[2022-11-28] MEDS: DULoxetine 20 MG CAP PO SCH (08:44)
[2022-11-28] MEDS: predniSONE 5 MG TAB PO SCH (08:44)
[2022-11-28] MEDS: Potassium Chloride 10 MEQ TAB PO SCH (08:44)
[2022-11-28] MEDS: Metoprolol Tartrate 25 MG TAB PO SCH (08:45)
[2022-11-28] MEDS: Furosemide 20 MG TAB PO SCH (13:09)
== END 2022-11-28 12:30 | disposition home or self-care (01) | DRG 948 ==
LOC: MADMS 15:50
PROVIDERS: ADMIT Family Medicine; ATTEND Family Medicine
DX: R53.81 Other malaise (principal); R53.1 Weakness; Z20.822 Contact with and (suspected) exposure to COVID-19; I11.0 Hypertensive heart disease with heart failure; I50.9 Heart failure, unspecified; I25.10 Atherosclerotic heart disease of native coronary artery without angina pectoris; M06.9 Rheumatoid arthritis, unspecified; E11.51 Type 2 diabetes mellitus with diabetic peripheral angiopathy without gangrene; E11.649 Type 2 diabetes mellitus with hypoglycemia without coma; R19.7 Diarrhea, unspecified; Z60.2 Problems related to living alone; I95.2 Hypotension due to drugs; D64.9 Anemia, unspecified; Z95.1 Presence of aortocoronary bypass graft; Z88.6 Allergy status to analgesic agent; Z88.5 Allergy status to narcotic agent; Z79.82 Long term (current) use of aspirin; Z79.899 Other long term (current) drug therapy; Z79.52 Long term (current) use of systemic steroids; Z90.49 Acquired absence of other specified parts of digestive tract; Z90.711 Acquired absence of uterus with remaining cervical stump; Z87.891 Personal history of nicotine dependence; Z79.02 Long term (current) use of antithrombotics/antiplatelets
CPT/HCPCS: 36416; 80048; 80053; 84484; 85025; 85027; 87811; 36415-59; J1611; J7070; J7512; U0003; U0005

== ENCOUNTER 2023-08-24 11:31 | Emergency (ER) | payer OTHER, MEDICAID ==
[2023-08-24] MEDS ORDERED: Acetaminophen 500 MG TAB ONE (11:45)
[2023-08-24 12:58] LABS: Hematocrit 24.2 % (36.0-47.0); Hemoglobin 7.2 g/dL (12.0-16.0); Mean Corpuscular HGB CONC 29.7 g/dL (32.0-36.0); Mean Corpuscular Hemoglobin 22.3 pg (27.0-31.0); Mean Platelet Volume 10.5 fL (7.4-10.4); Platelet Count 124 10x3/uL (130-400); RBC Distribution Width 20.3 % (11.5-14.5); Red Blood Cell (RBC) Count 3.23 mill/uL (4.20-5.40); White Blood Cell (WBC) Count 9.6 10x3/uL (4.8-10.8)
[2023-08-24 13:00] LABS: INR-International Normal Ratio 1.1; PTT 26.8 sec (22.9-36.1); Prothrombin Time 14.8 sec (12.0-14.7)
[2023-08-24 13:09] LABS: ALT (SGPT) Less than 7 U/L (8-55); AST (SGOT) 12 U/L (5-34); Alkaline Phosphatase 64 U/L (40-110); Anion Gap 13 mmol/L (10-20); BUN (Urea Nitrogen) 26 mg/dL (9.8-20.1); Bilirubin, Total 0.7 mg/dL (0.2-1.2); Calc. Creatinine Clearance 0 mL/min (70-130); Calcium 7.6 mg/dL (7.8-10.44); Carbon Dioxide 19 mmol/L (23-31); Chloride 104 mmol/L (98-107); Estimated GFR 45; Globulin 2.1 g/dL (2.4-3.5); Glucose 128 mg/dL (80-115); Protein, Total 5.1 g/dL (5.8-8.1); Sodium 132 mmol/L (136-145)
[2023-08-24 13:11] LABS: Anisocytosis SLIGHT = 6-15 cells (100X) (0-5/hpf); Band 4 % (5-11); Eosinophils 1 % (0-10); Lymphocytes 10 % (21-51); MDiff Complete? YES; Macrocytosis SLIGHT = 6-15 cells (100X) (0-5/hpf); Manual Diff?? YES; Monocytes 2 % (0-10); Neutrophil 83 % (42-75)
[2023-08-24 13:12] LABS: Platelet Adequacy Comment Appears Decreased
[2023-08-24] MEDS ORDERED: Iopamidol 370 76% 100 ML VIAL ONE (15:06)
== END 2023-08-24 14:27 | disposition short-term general hospital (02) ==
LOC: MADERS 11:31
DX: S72.031A Displaced midcervical fracture of right femur, initial encounter for closed fracture (principal); Z87.891 Personal history of nicotine dependence; I50.9 Heart failure, unspecified; W18.30XA Fall on same level, unspecified, initial encounter
CPT/HCPCS: 74177; 80053; 83605; 83880; 85025; 85610; 85730; 86850; 86900; 86901; Q9967

== ENCOUNTER 2023-09-04 15:35 | Inpatient (IN) | payer OTHER, MEDICAID ==
[2023-09-04] MEDS ORDERED: Ipratropium/Albuterol 3 ML NEB NEB PRN (17:45)
[2023-09-04] MEDS ORDERED: Bisacodyl 5 MG TAB PO PRN (17:45)
[2023-09-04] MEDS ORDERED: Calcium Carbonate 500 MG ChewTAB PO PRN (17:45)
[2023-09-04 19:30] VITALS: BMI 28.0
[2023-09-04] MEDS: Rosuvastatin 10 MG TAB PO SCH (19:51)
[2023-09-04] MEDS: Ranolazine 500 MG ER.TAB PO SCH (19:52)
[2023-09-04] MEDS: Hydroxychloroquine Sulfate 200 MG TAB PO SCH (19:52)
[2023-09-04] MEDS: Senokot S 8.6-50 MG TAB PO SCH (19:52)
[2023-09-04] MEDS: traMADol HCl 50 MG TAB PO PRN (19:52)
[2023-09-05] MEDS: Ondansetron ODT 4 MG TAB PO PRN (04:56)
[2023-09-05] MEDS: Leflunomide 10 mg Tablet PO SCH (08:40)
[2023-09-05] MEDS: Cholecalciferol (Vitamin D3) 5,000 UNITS CAPSULE PO SCH (08:41)
[2023-09-05] MEDS: Acetaminophen 500 MG TAB PO PRN ×2 (08:41→21:10)
[2023-09-05] MEDS: Potassium Chloride 20 MEQ TAB PO SCH (08:41)
[2023-09-05] MEDS: Famotidine 20 MG TAB PO SCH (08:41)
[2023-09-05] MEDS: Furosemide 40 MG TAB PO SCH (08:41)
[2023-09-05] MEDS: Aspirin Chewable 81 MG TAB PO SCH (08:42)
[2023-09-05] MEDS: Bisoprolol Fumarate 5 MG TAB PO SCH (08:42)
[2023-09-05] MEDS: Sacubitril 24MG/Valsartan 26 MG TAB PO SCH (08:42)
[2023-09-05] MEDS: Ranolazine 500 MG ER.TAB PO SCH ×2 (08:42→21:09)
[2023-09-05] MEDS: CeleCOXIB 100 MG CAP PO PRN ×2 (08:42→21:10)
[2023-09-05] MEDS: predniSONE 5 MG TAB PO SCH (08:42)
[2023-09-05] MEDS: Docusate 100 MG CAP PO SCH (08:43)
[2023-09-05] MEDS: DULoxetine 20 MG CAP PO SCH (08:43)
[2023-09-05] MEDS: Spironolactone 25 MG TAB PO SCH (08:43)
[2023-09-05] MEDS: Senokot S 8.6-50 MG TAB PO SCH ×2 (08:44→21:10)
[2023-09-05] MEDS: Hydroxychloroquine Sulfate 200 MG TAB PO SCH ×2 (08:44→21:10)
[2023-09-05] MEDS ORDERED: Prasugrel 10 MG TAB PO SCH (09:00)
[2023-09-05] MEDS: Rosuvastatin 10 MG TAB PO SCH (21:09)
[2023-09-06] MEDS: Furosemide 40 MG TAB PO SCH (08:11)
[2023-09-06] MEDS: Cholecalciferol (Vitamin D3) 5,000 UNITS CAPSULE PO SCH (08:11)
[2023-09-06] MEDS: Sacubitril 24MG/Valsartan 26 MG TAB PO SCH (08:11)
[2023-09-06] MEDS: Hydroxychloroquine Sulfate 200 MG TAB PO SCH ×2 (08:11→21:05)
[2023-09-06] MEDS: DULoxetine 20 MG CAP PO SCH (08:11)
[2023-09-06] MEDS: Leflunomide 10 mg Tablet PO SCH (08:11)
[2023-09-06] MEDS: Bisoprolol Fumarate 5 MG TAB PO SCH (08:11)
[2023-09-06] MEDS: Spironolactone 25 MG TAB PO SCH (08:11)
[2023-09-06] MEDS: Famotidine 20 MG TAB PO SCH (08:11)
[2023-09-06] MEDS: Potassium Chloride 20 MEQ TAB PO SCH (08:11)
[2023-09-06] MEDS: Ranolazine 500 MG ER.TAB PO SCH ×2 (08:12→21:05)
[2023-09-06] MEDS: Senokot S 8.6-50 MG TAB PO SCH ×2 (08:12→21:06)
[2023-09-06] MEDS: Aspirin Chewable 81 MG TAB PO SCH (08:12)
[2023-09-06] MEDS: Docusate 100 MG CAP PO SCH (08:12)
[2023-09-06] MEDS: predniSONE 5 MG TAB PO SCH (08:12)
[2023-09-06 08:36] LABS: Anion Gap 19 mmol/L (10-20); BUN (Urea Nitrogen) 17 mg/dL (9.8-20.1); Calc. Creatinine Clearance 61 mL/min (70-130); Calcium 9.1 mg/dL (7.8-10.44); Carbon Dioxide 18 mmol/L (23-31); Chloride 105 mmol/L (98-107); Estimated GFR 61; Glucose 107 mg/dL (80-115); Potassium 4.5 mmol/L (3.5-5.1); Sodium 137 mmol/L (136-145)
[2023-09-06 08:59] LABS: #Basophils 0.2 thou/uL (0.0-0.2); #Lymphocytes 1.5 thou/uL (1.20-3.40); #Monocytes 0.4 thou/uL (0.11-0.59); #Neutrophils 6.4 thou/uL (1.40-6.50); %Basophils 2.1 % (0.0-1.0); %Eosinophils 0.4 % (0.0-10.0); %Lymphocytes 17.7 % (21.0-51.0); %Monocytes 4.8 % (0.0-10.0); %Neutrophils 75.1 % (42.0-75.0); Hematocrit 31.2 % (36.0-47.0); Hemoglobin 9.2 g/dL (12.0-16.0); Mean Corpuscular HGB CONC 29.4 g/dL (32.0-36.0); Mean Corpuscular Hemoglobin 23.1 pg (27.0-31.0); Mean Corpuscular Volume 78.6 fl (78.0-98.0); Mean Platelet Volume 10.1 fL (7.4-10.4); Platelet Count 313 10x3/uL (130-400); RBC Distribution Width 21.3 % (11.5-14.5); Red Blood Cell (RBC) Count 3.98 mill/uL (4.20-5.40); White Blood Cell (WBC) Count 8.6 10x3/uL (4.8-10.8)
[2023-09-06] MEDS ORDERED: Proctozone-HC 30 GM TUBE TOP PRN (18:00)
[2023-09-06] MEDS: CeleCOXIB 100 MG CAP PO PRN (19:55)
[2023-09-06] MEDS: Acetaminophen 500 MG TAB PO PRN (19:56)
[2023-09-06] MEDS: Rosuvastatin 10 MG TAB PO SCH (21:05)
[2023-09-06] MEDS: Loperamide HCl 2 MG CAP PO PRN (23:19)
[2023-09-06] MEDS: traMADol HCl 50 MG TAB PO PRN (23:19)
[2023-09-07] MEDS: Furosemide 40 MG TAB PO SCH (08:04)
[2023-09-07] MEDS: Aspirin Chewable 81 MG TAB PO SCH (09:16)
[2023-09-07] MEDS: Ranolazine 500 MG ER.TAB PO SCH ×2 (09:17→21:09)
[2023-09-07] MEDS: Spironolactone 25 MG TAB PO SCH (09:17)
[2023-09-07] MEDS: Bisoprolol Fumarate 5 MG TAB PO SCH (09:17)
[2023-09-07] MEDS: Leflunomide 10 mg Tablet PO SCH (09:18)
[2023-09-07] MEDS: CeleCOXIB 100 MG CAP PO PRN (09:18)
[2023-09-07] MEDS: Senokot S 8.6-50 MG TAB PO SCH ×2 (09:18→21:10)
[2023-09-07] MEDS: Famotidine 20 MG TAB PO SCH (09:18)
[2023-09-07] MEDS: Sacubitril 24MG/Valsartan 26 MG TAB PO SCH (09:18)
[2023-09-07] MEDS: Potassium Chloride 20 MEQ TAB PO SCH (09:18)
[2023-09-07] MEDS: DULoxetine 20 MG CAP PO SCH (09:18)
[2023-09-07] MEDS: Ondansetron ODT 4 MG TAB PO PRN (09:18)
[2023-09-07] MEDS: predniSONE 5 MG TAB PO SCH (09:19)
[2023-09-07] MEDS: Cholecalciferol (Vitamin D3) 5,000 UNITS CAPSULE PO SCH (09:19)
[2023-09-07] MEDS: Hydroxychloroquine Sulfate 200 MG TAB PO SCH ×2 (09:19→21:09)
[2023-09-07] MEDS: Acetaminophen 500 MG TAB PO PRN (09:19)
[2023-09-07] MEDS ORDERED: Ferrous Sulfate 325 MG TAB PO SCH (11:30)
[2023-09-07] MEDS: traMADol HCl 50 MG TAB PO PRN ×2 (14:04→21:09)
[2023-09-07] MEDS: Rosuvastatin 10 MG TAB PO SCH (21:08)
[2023-09-08] MEDS: CeleCOXIB 100 MG CAP PO PRN ×2 (04:34→18:03)
[2023-09-08] MEDS: Acetaminophen 500 MG TAB PO PRN ×2 (04:35→18:02)
[2023-09-08] MEDS: Spironolactone 25 MG TAB PO SCH (08:50)
[2023-09-08] MEDS: Leflunomide 10 mg Tablet PO SCH (08:51)
[2023-09-08] MEDS: Cholecalciferol (Vitamin D3) 5,000 UNITS CAPSULE PO SCH (08:51)
[2023-09-08] MEDS: Bisoprolol Fumarate 5 MG TAB PO SCH (08:51)
[2023-09-08] MEDS: Furosemide 40 MG TAB PO SCH (08:51)
[2023-09-08] MEDS: Famotidine 20 MG TAB PO SCH (08:52)
[2023-09-08] MEDS: Aspirin Chewable 81 MG TAB PO SCH (08:52)
[2023-09-08] MEDS: DULoxetine 20 MG CAP PO SCH (08:52)
[2023-09-08] MEDS: Potassium Chloride 20 MEQ TAB PO SCH (08:52)
[2023-09-08] MEDS: Ranolazine 500 MG ER.TAB PO SCH ×2 (08:52→20:31)
[2023-09-08] MEDS: Hydroxychloroquine Sulfate 200 MG TAB PO SCH ×2 (08:52→20:31)
[2023-09-08] MEDS: Ferrous Sulfate 325 MG TAB PO SCH (08:52)
[2023-09-08] MEDS: predniSONE 5 MG TAB PO SCH (08:53)
[2023-09-08] MEDS: Senokot S 8.6-50 MG TAB PO SCH ×2 (08:53→20:30)
[2023-09-08] MEDS ORDERED: FLU VACC QS2023(65UP)/MF59C/PF 60 MCG/0.5 ML SYRINGE IM ONE (09:00)
[2023-09-08] MEDS: Rosuvastatin 10 MG TAB PO SCH (20:31)
[2023-09-09] MEDS: traMADol HCl 50 MG TAB PO PRN ×3 (02:40→20:53)
[2023-09-09] MEDS: Loperamide HCl 2 MG CAP PO PRN ×3 (02:45→20:44)
[2023-09-09] MEDS: Acetaminophen 500 MG TAB PO PRN ×2 (08:40→20:44)
[2023-09-09] MEDS: Bisoprolol Fumarate 5 MG TAB PO SCH (08:40)
[2023-09-09] MEDS: Spironolactone 25 MG TAB PO SCH (08:41)
[2023-09-09] MEDS: Potassium Chloride 20 MEQ TAB PO SCH (08:41)
[2023-09-09] MEDS: Famotidine 20 MG TAB PO SCH (08:41)
[2023-09-09] MEDS: predniSONE 5 MG TAB PO SCH (08:41)
[2023-09-09] MEDS: Hydroxychloroquine Sulfate 200 MG TAB PO SCH ×2 (08:41→20:44)
[2023-09-09] MEDS: DULoxetine 20 MG CAP PO SCH (08:41)
[2023-09-09] MEDS: Aspirin Chewable 81 MG TAB PO SCH (08:41)
[2023-09-09] MEDS: Ranolazine 500 MG ER.TAB PO SCH ×2 (08:41→20:44)
[2023-09-09] MEDS: Ferrous Sulfate 325 MG TAB PO SCH (08:41)
[2023-09-09] MEDS: Cholecalciferol (Vitamin D3) 5,000 UNITS CAPSULE PO SCH (08:42)
[2023-09-09] MEDS: CeleCOXIB 100 MG CAP PO PRN (08:42)
[2023-09-09] MEDS: Furosemide 40 MG TAB PO SCH (08:42)
[2023-09-09] MEDS: Leflunomide 10 mg Tablet PO SCH (08:46)
[2023-09-09] MEDS: Senokot S 8.6-50 MG TAB PO SCH ×2 (08:47→20:45)
[2023-09-09] MEDS: Ondansetron ODT 4 MG TAB PO PRN (13:29)
[2023-09-09] MEDS: Rosuvastatin 10 MG TAB PO SCH (20:43)
[2023-09-10] MEDS: Loperamide HCl 2 MG CAP PO PRN (02:43)
[2023-09-10] MEDS: Furosemide 40 MG TAB PO SCH (08:05)
[2023-09-10] MEDS: Bisoprolol Fumarate 5 MG TAB PO SCH (08:06)
[2023-09-10] MEDS: Aspirin Chewable 81 MG TAB PO SCH (08:06)
[2023-09-10] MEDS: Ferrous Sulfate 325 MG TAB PO SCH (08:06)
[2023-09-10] MEDS: Ranolazine 500 MG ER.TAB PO SCH ×2 (08:07→20:09)
[2023-09-10] MEDS: Leflunomide 10 mg Tablet PO SCH (08:07)
[2023-09-10] MEDS: DULoxetine 20 MG CAP PO SCH (08:08)
[2023-09-10] MEDS: Spironolactone 25 MG TAB PO SCH (08:08)
[2023-09-10] MEDS: Senokot S 8.6-50 MG TAB PO SCH ×2 (08:08→20:10)
[2023-09-10] MEDS: predniSONE 5 MG TAB PO SCH (08:08)
[2023-09-10] MEDS: Cholecalciferol (Vitamin D3) 5,000 UNITS CAPSULE PO SCH (08:08)
[2023-09-10] MEDS: Acetaminophen 500 MG TAB PO PRN ×2 (08:09→20:10)
[2023-09-10] MEDS: Famotidine 20 MG TAB PO SCH (08:09)
[2023-09-10] MEDS: Hydroxychloroquine Sulfate 200 MG TAB PO SCH ×2 (08:09→20:09)
[2023-09-10] MEDS: Potassium Chloride 20 MEQ TAB PO SCH (08:10)
[2023-09-10] MEDS: traMADol HCl 50 MG TAB PO PRN (13:53)
[2023-09-10] MEDS: CeleCOXIB 100 MG CAP PO PRN (20:09)
[2023-09-10] MEDS: Rosuvastatin 10 MG TAB PO SCH (20:09)
[2023-09-11] MEDS: Ondansetron ODT 4 MG TAB PO PRN (06:02)
[2023-09-11] MEDS: Cholecalciferol (Vitamin D3) 5,000 UNITS CAPSULE PO SCH (08:23)
[2023-09-11] MEDS: Leflunomide 10 mg Tablet PO SCH (08:23)
[2023-09-11] MEDS: Ranolazine 500 MG ER.TAB PO SCH ×2 (08:24→21:13)
[2023-09-11] MEDS: Bisoprolol Fumarate 5 MG TAB PO SCH (08:24)
[2023-09-11] MEDS: Furosemide 40 MG TAB PO SCH (08:24)
[2023-09-11] MEDS: Hydroxychloroquine Sulfate 200 MG TAB PO SCH ×2 (08:24→21:13)
[2023-09-11] MEDS: Famotidine 20 MG TAB PO SCH (08:24)
[2023-09-11] MEDS: DULoxetine 20 MG CAP PO SCH (08:24)
[2023-09-11] MEDS: Potassium Chloride 20 MEQ TAB PO SCH ×2 (08:24→13:03)
[2023-09-11] MEDS: Ferrous Sulfate 325 MG TAB PO SCH (08:24)
[2023-09-11] MEDS: Aspirin Chewable 81 MG TAB PO SCH (08:24)
[2023-09-11] MEDS: Senokot S 8.6-50 MG TAB PO SCH (08:25)
[2023-09-11] MEDS: Spironolactone 25 MG TAB PO SCH (08:26)
[2023-09-11] MEDS: CeleCOXIB 100 MG CAP PO PRN ×2 (08:29→21:13)
[2023-09-11] MEDS: Acetaminophen 500 MG TAB PO PRN (08:30)
[2023-09-11 08:57] LABS: Hematocrit 31.6 % (36.0-47.0); Hemoglobin 9.2 g/dL (12.0-16.0); Mean Corpuscular HGB CONC 29.2 g/dL (32.0-36.0); Mean Corpuscular Hemoglobin 23.7 pg (27.0-31.0); Mean Corpuscular Volume 81.2 fl (78.0-98.0); Mean Platelet Volume 8.9 fL (7.4-10.4); Platelet Count 248 10x3/uL (130-400); RBC Distribution Width 24.5 % (11.5-14.5); Red Blood Cell (RBC) Count 3.89 mill/uL (4.20-5.40); White Blood Cell (WBC) Count 10.9 10x3/uL (4.8-10.8)
[2023-09-11] MEDS ORDERED: predniSONE 5 MG TAB PO PRN (08:57)
[2023-09-11] MEDS ORDERED: Saccharomyces boulardii 250 MG CAP PO SCH (09:00)
[2023-09-11] MEDS ORDERED: Sulfameth/Trimethoprim DS 800-160mg TAB PO SCH (09:00)
[2023-09-11 09:02] LABS: Lymphocytes 9 % (21-51); MDiff Complete? YES; Neutrophil 83 % (42-75)
[2023-09-11 09:03] LABS: ALT (SGPT) Less than 7 U/L (8-55); AST (SGOT) 12 U/L (5-34); Albumin 3.5 g/dL (3.4-4.8); Alkaline Phosphatase 87 U/L (40-110); Anion Gap 18 mmol/L (10-20); Anisocytosis SLIGHT = 6-15 cells (100X) (0-5/hpf); BUN (Urea Nitrogen) 22 mg/dL (9.8-20.1); Band 3 % (5-11); Bilirubin, Total 0.6 mg/dL (0.2-1.2); Calc. Creatinine Clearance 55 mL/min (70-130); Calcium 9.3 mg/dL (7.8-10.44); Carbon Dioxide 17 mmol/L (23-31); Chloride 104 mmol/L (98-107); Estimated GFR 57; Globulin 3.4 g/dL (2.4-3.5); Glucose 112 mg/dL (80-115); Monocytes 5 % (0-10); Potassium 4.2 mmol/L (3.5-5.1); Protein, Total 6.9 g/dL (5.8-8.1); Sodium 135 mmol/L (136-145)
[2023-09-11 09:04] LABS: Platelet Adequacy Comment Appears Adequate
[2023-09-11] MEDS: traMADol HCl 50 MG TAB PO PRN ×2 (13:03→21:14)
[2023-09-11] MEDS: Rosuvastatin 10 MG TAB PO SCH (21:13)
[2023-09-12] MEDS: Bisoprolol Fumarate 5 MG TAB PO SCH (08:17)
[2023-09-12] MEDS: Cholecalciferol (Vitamin D3) 5,000 UNITS CAPSULE PO SCH (08:17)
[2023-09-12] MEDS: Acetaminophen 500 MG TAB PO PRN ×2 (08:17→17:45)
[2023-09-12] MEDS: Furosemide 40 MG TAB PO SCH (08:18)
[2023-09-12] MEDS: Spironolactone 25 MG TAB PO SCH (08:18)
[2023-09-12] MEDS: Ranolazine 500 MG ER.TAB PO SCH ×2 (08:18→21:28)
[2023-09-12] MEDS: Ferrous Sulfate 325 MG TAB PO SCH (08:18)
[2023-09-12] MEDS: Famotidine 20 MG TAB PO SCH (08:18)
[2023-09-12] MEDS: Aspirin Chewable 81 MG TAB PO SCH (08:19)
[2023-09-12] MEDS: DULoxetine 20 MG CAP PO SCH (08:19)
[2023-09-12] MEDS: Leflunomide 10 mg Tablet PO SCH (08:19)
[2023-09-12] MEDS: Hydroxychloroquine Sulfate 200 MG TAB PO SCH ×2 (08:19→21:28)
[2023-09-12] MEDS: CeleCOXIB 100 MG CAP PO PRN ×2 (08:19→17:46)
[2023-09-12] MEDS: Potassium Chloride 20 MEQ TAB PO SCH (08:20)
[2023-09-12] MEDS: traMADol HCl 50 MG TAB PO PRN ×2 (11:10→21:27)
[2023-09-12] MEDS: Ondansetron ODT 4 MG TAB PO PRN (11:13)
[2023-09-12] MEDS: Rosuvastatin 10 MG TAB PO SCH (21:28)
[2023-09-13] MEDS: traMADol HCl 50 MG TAB PO PRN ×3 (05:47→20:29)
[2023-09-13] MEDS: Leflunomide 10 mg Tablet PO SCH (08:45)
[2023-09-13] MEDS: Spironolactone 25 MG TAB PO SCH (08:45)
[2023-09-13] MEDS: Bisoprolol Fumarate 5 MG TAB PO SCH (08:46)
[2023-09-13] MEDS: Ferrous Sulfate 325 MG TAB PO SCH (08:46)
[2023-09-13] MEDS: Famotidine 20 MG TAB PO SCH (08:46)
[2023-09-13] MEDS: Aspirin Chewable 81 MG TAB PO SCH (08:46)
[2023-09-13] MEDS: DULoxetine 20 MG CAP PO SCH (08:46)
[2023-09-13] MEDS: Furosemide 40 MG TAB PO SCH (08:46)
[2023-09-13] MEDS: Cholecalciferol (Vitamin D3) 5,000 UNITS CAPSULE PO SCH (08:46)
[2023-09-13] MEDS: Potassium Chloride 20 MEQ TAB PO SCH (08:46)
[2023-09-13] MEDS: Hydroxychloroquine Sulfate 200 MG TAB PO SCH ×2 (08:47→20:29)
[2023-09-13] MEDS: Ranolazine 500 MG ER.TAB PO SCH ×2 (08:47→20:29)
[2023-09-13] MEDS ORDERED: traMADol HCl 50 MG TAB PO SCH (09:45)
[2023-09-13] MEDS: Acetaminophen 500 MG TAB PO PRN (16:09)
[2023-09-13] MEDS: CeleCOXIB 100 MG CAP PO PRN (16:10)
[2023-09-13] MEDS: Rosuvastatin 10 MG TAB PO SCH (20:29)
[2023-09-14 06:05] LABS: Hematocrit 26.5 % (36.0-47.0); Platelet Count 194 10x3/uL (130-400)
[2023-09-14] MEDS: Furosemide 40 MG TAB PO SCH (08:11)
[2023-09-14] MEDS: Famotidine 20 MG TAB PO SCH (08:11)
[2023-09-14] MEDS: Ranolazine 500 MG ER.TAB PO SCH ×2 (08:11→20:04)
[2023-09-14] MEDS: Spironolactone 25 MG TAB PO SCH (08:11)
[2023-09-14] MEDS: Bisoprolol Fumarate 5 MG TAB PO SCH (08:11)
[2023-09-14] MEDS: DULoxetine 20 MG CAP PO SCH (08:11)
[2023-09-14] MEDS: Ferrous Sulfate 325 MG TAB PO SCH (08:11)
[2023-09-14] MEDS: Aspirin Chewable 81 MG TAB PO SCH (08:11)
[2023-09-14] MEDS: Hydroxychloroquine Sulfate 200 MG TAB PO SCH ×2 (08:11→20:05)
[2023-09-14] MEDS: Potassium Chloride 20 MEQ TAB PO SCH (08:12)
[2023-09-14] MEDS: Leflunomide 10 mg Tablet PO SCH (08:12)
[2023-09-14] MEDS: Cholecalciferol (Vitamin D3) 5,000 UNITS CAPSULE PO SCH (08:12)
[2023-09-14] MEDS: Sulfameth/Trimethoprim DS 800-160mg TAB PO SCH ×2 (08:19→20:04)
[2023-09-14] MEDS: traMADol HCl 50 MG TAB PO PRN ×2 (11:33→20:04)
[2023-09-14] MEDS: Rosuvastatin 10 MG TAB PO SCH (20:04)
[2023-09-14] MEDS: CeleCOXIB 100 MG CAP PO PRN (20:05)
[2023-09-15] MEDS: Ondansetron ODT 4 MG TAB PO PRN ×2 (00:14→22:06)
[2023-09-15 05:50] LABS: #Basophils 0.1 thou/uL (0.0-0.2); #Lymphocytes 1.5 thou/uL (1.20-3.40); #Neutrophils 4.2 thou/uL (1.40-6.50); %Basophils 1.5 % (0.0-1.0); %Eosinophils 0.1 % (0.0-10.0); %Lymphocytes 22.1 % (21.0-51.0); %Monocytes 14.2 % (0.0-10.0); Hemoglobin 9.2 g/dL (12.0-16.0); Mean Corpuscular HGB CONC 30.6 g/dL (32.0-36.0); Mean Corpuscular Hemoglobin 24.2 pg (27.0-31.0); Mean Corpuscular Volume 79.1 fl (78.0-98.0); Platelet Count 205 10x3/uL (130-400); RBC Distribution Width 22.8 % (11.5-14.5); White Blood Cell (WBC) Count 6.8 10x3/uL (4.8-10.8)
[2023-09-15] MEDS: Ferrous Sulfate 325 MG TAB PO SCH (08:07)
[2023-09-15] MEDS: Furosemide 40 MG TAB PO SCH (08:07)
[2023-09-15] MEDS: Aspirin Chewable 81 MG TAB PO SCH (08:08)
[2023-09-15] MEDS: DULoxetine 20 MG CAP PO SCH (08:08)
[2023-09-15] MEDS: Bisoprolol Fumarate 5 MG TAB PO SCH (08:08)
[2023-09-15] MEDS: Potassium Chloride 20 MEQ TAB PO SCH (08:09)
[2023-09-15] MEDS: Famotidine 20 MG TAB PO SCH (08:09)
[2023-09-15] MEDS: Cholecalciferol (Vitamin D3) 5,000 UNITS CAPSULE PO SCH (08:09)
[2023-09-15] MEDS: Hydroxychloroquine Sulfate 200 MG TAB PO SCH ×2 (08:09→20:34)
[2023-09-15] MEDS: Ranolazine 500 MG ER.TAB PO SCH ×2 (08:09→20:33)
[2023-09-15] MEDS: Leflunomide 10 mg Tablet PO SCH (08:09)
[2023-09-15] MEDS: Spironolactone 25 MG TAB PO SCH (08:09)
[2023-09-15] MEDS: Sulfameth/Trimethoprim DS 800-160mg TAB PO SCH ×2 (08:10→20:33)
[2023-09-15] MEDS: traMADol HCl 50 MG TAB PO PRN (20:32)
[2023-09-15] MEDS: Rosuvastatin 10 MG TAB PO SCH (20:33)
[2023-09-16] MEDS: Ferrous Sulfate 325 MG TAB PO SCH (08:09)
[2023-09-16] MEDS: Furosemide 40 MG TAB PO SCH (08:09)
[2023-09-16] MEDS: Potassium Chloride 20 MEQ TAB PO SCH (08:10)
[2023-09-16] MEDS: Ranolazine 500 MG ER.TAB PO SCH ×2 (08:10→20:11)
[2023-09-16] MEDS: DULoxetine 20 MG CAP PO SCH (08:10)
[2023-09-16] MEDS: Aspirin Chewable 81 MG TAB PO SCH (08:10)
[2023-09-16] MEDS: Famotidine 20 MG TAB PO SCH (08:10)
[2023-09-16] MEDS: Cholecalciferol (Vitamin D3) 5,000 UNITS CAPSULE PO SCH (08:10)
[2023-09-16] MEDS: Sulfameth/Trimethoprim DS 800-160mg TAB PO SCH ×2 (08:10→20:11)
[2023-09-16] MEDS: Spironolactone 25 MG TAB PO SCH (08:10)
[2023-09-16] MEDS: Bisoprolol Fumarate 5 MG TAB PO SCH (08:11)
[2023-09-16] MEDS: Hydroxychloroquine Sulfate 200 MG TAB PO SCH ×2 (08:11→20:11)
[2023-09-16] MEDS: Leflunomide 10 mg Tablet PO SCH (08:11)
[2023-09-16] MEDS: Ondansetron ODT 4 MG TAB PO PRN ×2 (12:11→20:10)
[2023-09-16] MEDS: Rosuvastatin 10 MG TAB PO SCH (20:11)
[2023-09-17] MEDS: DULoxetine 20 MG CAP PO SCH (08:12)
[2023-09-17] MEDS: Sulfameth/Trimethoprim DS 800-160mg TAB PO SCH (08:12)
[2023-09-17] MEDS: Aspirin Chewable 81 MG TAB PO SCH (08:12)
[2023-09-17] MEDS: Furosemide 40 MG TAB PO SCH (08:12)
[2023-09-17] MEDS: Ranolazine 500 MG ER.TAB PO SCH (08:12)
[2023-09-17] MEDS: Cholecalciferol (Vitamin D3) 5,000 UNITS CAPSULE PO SCH (08:12)
[2023-09-17] MEDS: Potassium Chloride 20 MEQ TAB PO SCH (08:13)
[2023-09-17] MEDS: Ondansetron ODT 4 MG TAB PO PRN (08:13)
[2023-09-17] MEDS: Ferrous Sulfate 325 MG TAB PO SCH (08:13)
[2023-09-17] MEDS: Hydroxychloroquine Sulfate 200 MG TAB PO SCH (08:13)
[2023-09-17] MEDS: Famotidine 20 MG TAB PO SCH (08:13)
[2023-09-17] MEDS: Leflunomide 10 mg Tablet PO SCH (08:13)
[2023-09-17] MEDS: Bisoprolol Fumarate 5 MG TAB PO SCH (08:15)
[2023-09-17] MEDS: Spironolactone 25 MG TAB PO SCH (08:15)
[2023-09-17 18:07] VITALS: BP 113/64; TEMP 98.4
[2023-09-17] MEDS: traMADol HCl 50 MG TAB PO PRN (18:11)
[2023-09-18] MEDS ORDERED: LevoFLOXacin 500 MG TAB PO SCH (06:00)
== END 2023-09-17 19:30 | disposition short-term general hospital (02) | DRG 559 ==
LOC: MADMS 18:35
PROVIDERS: ADMIT Family Medicine; ATTEND Family Medicine
DX: S72.001D Fracture of unspecified part of neck of right femur, subsequent encounter for closed fracture with routine healing (principal); I50.43 Acute on chronic combined systolic (congestive) and diastolic (congestive) heart failure; E78.2 Mixed hyperlipidemia; M06.9 Rheumatoid arthritis, unspecified; R53.81 Other malaise; W18.30XA Fall on same level, unspecified, initial encounter; D64.9 Anemia, unspecified; I11.0 Hypertensive heart disease with heart failure; E11.40 Type 2 diabetes mellitus with diabetic neuropathy, unspecified; I95.9 Hypotension, unspecified; R19.7 Diarrhea, unspecified; L90.5 Scar conditions and fibrosis of skin; R26.81 Unsteadiness on feet; B96.5 Pseudomonas (aeruginosa) (mallei) (pseudomallei) as the cause of diseases classified elsewhere; Z96.641 Presence of right artificial hip joint; I25.2 Old myocardial infarction; Z79.02 Long term (current) use of antithrombotics/antiplatelets
CPT/HCPCS: 36415; 80048; 80053; 82565; 85014; 85018; 85025; 85049; 87040; 87070; 87077; 87186; 87205; J1650; J7512; Q0162

== ENCOUNTER 2023-09-24 15:11 | Inpatient (IN) | payer OTHER, MEDICAID ==
[2023-09-24] MEDS ORDERED: Ipratropium/Albuterol 3 ML NEB NEB PRN (18:36)
[2023-09-24] MEDS ORDERED: Nitroglycerin 0.4 MG TAB (25 Tab Bottle) SL PRN (18:36)
[2023-09-24] MEDS ORDERED: Acetaminophen 325 MG TAB PO PRN (18:36)
[2023-09-24] MEDS ORDERED: Bisacodyl 5 MG TAB PO PRN (18:36)
[2023-09-24] MEDS: Cefepime 2 GM in Sodium Chloride 0.9% 100 ML IVPB SCH (20:34)
[2023-09-24] MEDS: Rosuvastatin 10 MG TAB PO SCH (20:36)
[2023-09-24] MEDS: Ondansetron ODT 4 MG TAB PO PRN (20:36)
[2023-09-24] MEDS: Ranolazine 500 MG ER.TAB PO SCH (20:36)
[2023-09-24] MEDS: Hydroxychloroquine Sulfate 200 MG TAB PO SCH (20:36)
[2023-09-24] MEDS: traMADol HCl 50 MG TAB PO PRN (20:36)
[2023-09-24] MEDS: Clobetasol 0.05% Cream 15 gm Tube TOP SCH (20:37)
[2023-09-24] MEDS: Senokot S 8.6-50 MG TAB PO SCH (20:39)
[2023-09-24] MEDS ORDERED: Cefepime 2 GM VIAL IVPB SCH (21:00)
[2023-09-25] MEDS: Ondansetron ODT 4 MG TAB PO PRN ×2 (03:02→09:07)
[2023-09-25] MEDS: Cefepime 2 GM in Sodium Chloride 0.9% 100 ML IVPB SCH ×2 (08:24→20:57)
[2023-09-25] MEDS: predniSONE 5 MG TAB PO SCH (08:25)
[2023-09-25] MEDS ORDERED: Bisoprolol Fumarate 5 MG TAB PO SCH (09:00)
[2023-09-25] MEDS: Spironolactone 25 MG TAB PO SCH (09:05)
[2023-09-25] MEDS: DULoxetine 20 MG CAP PO SCH (09:05)
[2023-09-25] MEDS: Magnesium Oxide 400 MG TAB PO SCH (09:05)
[2023-09-25] MEDS: Leflunomide 10 mg Tablet PO SCH (09:05)
[2023-09-25] MEDS: Senokot S 8.6-50 MG TAB PO SCH ×2 (09:05→20:55)
[2023-09-25] MEDS: Potassium Chloride 20 MEQ TAB PO SCH (09:05)
[2023-09-25] MEDS: Ezetimibe 10 MG TAB PO SCH (09:06)
[2023-09-25] MEDS: Aspirin Chewable 81 MG TAB PO SCH (09:06)
[2023-09-25] MEDS: Clobetasol 0.05% Cream 15 gm Tube TOP SCH ×2 (09:06→20:49)
[2023-09-25] MEDS: Prasugrel 10 MG TAB PO SCH (09:06)
[2023-09-25] MEDS: Furosemide 40 MG TAB PO SCH (09:06)
[2023-09-25] MEDS: Ranolazine 500 MG ER.TAB PO SCH ×2 (09:06→20:48)
[2023-09-25] MEDS: Hydroxychloroquine Sulfate 200 MG TAB PO SCH ×2 (09:06→20:48)
[2023-09-25] MEDS: traMADol HCl 50 MG TAB PO PRN (09:07)
[2023-09-25] MEDS: Rosuvastatin 10 MG TAB PO SCH (20:48)
[2023-09-25] MEDS: Acetaminophen 500 MG TAB PO PRN (20:56)
[2023-09-26] MEDS: Ondansetron ODT 4 MG TAB PO PRN ×2 (04:24→09:10)
[2023-09-26 05:49] LABS: Hematocrit 29.6 % (36.0-47.0); Hemoglobin 8.6 g/dL (12.0-16.0); Platelet Count 209 10x3/uL (130-400)
[2023-09-26] MEDS: traMADol HCl 50 MG TAB PO PRN (06:27)
[2023-09-26] MEDS: Cefepime 2 GM in Sodium Chloride 0.9% 100 ML IVPB SCH ×2 (08:33→20:39)
[2023-09-26] MEDS: Clobetasol 0.05% Cream 15 gm Tube TOP SCH (08:38)
[2023-09-26] MEDS: predniSONE 5 MG TAB PO SCH (08:38)
[2023-09-26] MEDS: Senokot S 8.6-50 MG TAB PO SCH ×2 (08:39→20:40)
[2023-09-26] MEDS ORDERED: Acetaminophen 325 MG TAB PO PRN (09:03)
[2023-09-26] MEDS: Potassium Chloride 20 MEQ TAB PO SCH (10:13)
[2023-09-26] MEDS: DULoxetine 20 MG CAP PO SCH (10:13)
[2023-09-26] MEDS: Aspirin Chewable 81 MG TAB PO SCH (10:13)
[2023-09-26] MEDS: Leflunomide 10 mg Tablet PO SCH (10:13)
[2023-09-26] MEDS: Spironolactone 25 MG TAB PO SCH (10:14)
[2023-09-26] MEDS: Prasugrel 10 MG TAB PO SCH (10:14)
[2023-09-26] MEDS: Ezetimibe 10 MG TAB PO SCH (10:14)
[2023-09-26] MEDS: Furosemide 40 MG TAB PO SCH (10:14)
[2023-09-26] MEDS: Magnesium Oxide 400 MG TAB PO SCH (10:14)
[2023-09-26] MEDS: Hydroxychloroquine Sulfate 200 MG TAB PO SCH ×2 (10:14→20:40)
[2023-09-26] MEDS: Ranolazine 500 MG ER.TAB PO SCH ×2 (10:14→20:40)
[2023-09-26] MEDS ORDERED: Simethicone Chewable 80 MG TAB PO PRN (17:42)
[2023-09-26] MEDS: Acetaminophen 500 MG TAB PO PRN (20:40)
[2023-09-26] MEDS: Rosuvastatin 10 MG TAB PO SCH (20:40)
[2023-09-26] MEDS: CLOBETASOL TOP SCH (20:41)
[2023-09-27] MEDS: traMADol HCl 50 MG TAB PO PRN (01:10)
[2023-09-27] MEDS: Ondansetron ODT 4 MG TAB PO PRN ×3 (05:16→18:24)
[2023-09-27 05:31] LABS: Anisocytosis SLIGHT = 6-15 cells (100X) (0-5/hpf); Band 3 % (5-11); Burr Cells SLIGHT = 2-5 cells (100X) (0-1/hpf); Eosinophils 1 % (0-10); Hematocrit 27.3 % (36.0-47.0); Hemoglobin 8.2 g/dL (12.0-16.0); Lymphocytes 25 % (21-51); MDiff Complete? YES; Mean Corpuscular Hemoglobin 24.8 pg (27.0-31.0); Mean Corpuscular Volume 82.4 fl (78.0-98.0); Mean Platelet Volume 8.1 fL (7.4-10.4); Monocytes 12 % (0-10); Neutrophil 59 % (42-75); Platelet Count 188 10x3/uL (130-400); Polychromasia SLIGHT = 2-3 cells (100X) (0-2/hpf); RBC Distribution Width 23.5 % (11.5-14.5); Red Blood Cell (RBC) Count 3.31 mill/uL (4.20-5.40); Target Cells SLIGHT = 2-5 cells (100X) (0-1/hpf); White Blood Cell (WBC) Count 6.3 10x3/uL (4.8-10.8)
[2023-09-27 05:32] LABS: CRP (Inflammatory) 0.54 mg/dL (= or < 0.5)
[2023-09-27 05:56] LABS: Anion Gap 14 mmol/L (10-20); BUN (Urea Nitrogen) 26 mg/dL (9.8-20.1); Calc. Creatinine Clearance 58 mL/min (70-130); Calcium 8.8 mg/dL (7.8-10.44); Carbon Dioxide 27 mmol/L (23-31); Chloride 100 mmol/L (98-107); Estimated GFR 63; Glucose 111 mg/dL (80-115); Potassium 4.5 mmol/L (3.5-5.1); Sodium 136 mmol/L (136-145)
[2023-09-27] MEDS: Aspirin Chewable 81 MG TAB PO SCH (08:27)
[2023-09-27] MEDS: Furosemide 40 MG TAB PO SCH (08:27)
[2023-09-27] MEDS: Spironolactone 25 MG TAB PO SCH (08:27)
[2023-09-27] MEDS: Ranolazine 500 MG ER.TAB PO SCH ×2 (08:27→20:18)
[2023-09-27] MEDS: Ezetimibe 10 MG TAB PO SCH (08:27)
[2023-09-27] MEDS: DULoxetine 20 MG CAP PO SCH (08:27)
[2023-09-27] MEDS: Potassium Chloride 20 MEQ TAB PO SCH (08:27)
[2023-09-27] MEDS: Magnesium Oxide 400 MG TAB PO SCH (08:28)
[2023-09-27] MEDS: Hydroxychloroquine Sulfate 200 MG TAB PO SCH ×2 (08:28→20:18)
[2023-09-27] MEDS: Cefepime 2 GM in Sodium Chloride 0.9% 100 ML IVPB SCH ×2 (08:28→20:17)
[2023-09-27] MEDS: Prasugrel 10 MG TAB PO SCH (08:28)
[2023-09-27] MEDS: Leflunomide 10 mg Tablet PO SCH (08:28)
[2023-09-27] MEDS: CLOBETASOL TOP SCH ×2 (08:29→20:18)
[2023-09-27] MEDS: Senokot S 8.6-50 MG TAB PO SCH ×2 (08:29→20:17)
[2023-09-27] MEDS: Rosuvastatin 10 MG TAB PO SCH (20:17)
[2023-09-28] MEDS: Ondansetron ODT 4 MG TAB PO PRN (08:59)
[2023-09-28] MEDS: Cefepime 2 GM in Sodium Chloride 0.9% 100 ML IVPB SCH ×2 (09:00→20:45)
[2023-09-28] MEDS: CLOBETASOL TOP SCH ×2 (09:01→20:51)
[2023-09-28] MEDS: Senokot S 8.6-50 MG TAB PO SCH ×2 (09:01→20:48)
[2023-09-28] MEDS: Mag-Al Plus 1200 MG/1200 MG/120 MG/30 ML UDCUP PO SCH ×5 (11:08→20:47)
[2023-09-28 11:40] VITALS: BMI 25.6
[2023-09-28] MEDS: Ranolazine 500 MG ER.TAB PO SCH ×2 (11:58→20:48)
[2023-09-28] MEDS ORDERED: Ondansetron PF 4 MG/2 ML Vial IVP PRN (12:00)
[2023-09-28] MEDS: Prasugrel 10 MG TAB PO SCH (13:03)
[2023-09-28] MEDS: Aspirin Chewable 81 MG TAB PO SCH (13:03)
[2023-09-28] MEDS: Potassium Chloride 20 MEQ TAB PO SCH (13:04)
[2023-09-28] MEDS: Ezetimibe 10 MG TAB PO SCH (13:04)
[2023-09-28] MEDS: Leflunomide 10 mg Tablet PO SCH (13:04)
[2023-09-28] MEDS: Magnesium Oxide 400 MG TAB PO SCH (13:04)
[2023-09-28] MEDS: DULoxetine 20 MG CAP PO SCH (13:04)
[2023-09-28] MEDS: Hydroxychloroquine Sulfate 200 MG TAB PO SCH ×2 (13:06→20:48)
[2023-09-28] MEDS: Furosemide 40 MG TAB PO SCH (13:17)
[2023-09-28] MEDS: Spironolactone 25 MG TAB PO SCH (13:32)
[2023-09-28 20:15] LABS: Troponin I 0.155 ng/mL (< 0.028)
[2023-09-28 20:29] LABS: ALT (SGPT) 8 U/L (8-55); AST (SGOT) 19 U/L (5-34); Albumin 3.2 g/dL (3.4-4.8); Alkaline Phosphatase 73 U/L (40-110); Anion Gap 15 mmol/L (10-20); BUN (Urea Nitrogen) 22 mg/dL (9.8-20.1); Bilirubin, Total 0.5 mg/dL (0.2-1.2); Calc. Creatinine Clearance 51 mL/min (70-130); Calcium 8.7 mg/dL (7.8-10.44); Carbon Dioxide 24 mmol/L (23-31); Chloride 99 mmol/L (98-107); Estimated GFR 54; Globulin 2.9 g/dL (2.4-3.5); Glucose 113 mg/dL (80-115); Potassium 4.7 mmol/L (3.5-5.1); Protein, Total 6.1 g/dL (5.8-8.1); Sodium 133 mmol/L (136-145)
[2023-09-28 20:36] LABS: #Basophils 0.2 thou/uL (0.0-0.2); #Lymphocytes 0.4 thou/uL (1.20-3.40); #Monocytes 0.9 thou/uL (0.11-0.59); #Neutrophils 7.1 thou/uL (1.40-6.50); %Basophils 2.8 % (0.0-1.0); %Eosinophils 0.1 % (0.0-10.0); %Lymphocytes 4.2 % (21.0-51.0); %Monocytes 10.3 % (0.0-10.0); %Neutrophils 82.6 % (42.0-75.0); Hematocrit 28.3 % (36.0-47.0); Hemoglobin 8.3 g/dL (12.0-16.0); Mean Corpuscular HGB CONC 29.2 g/dL (32.0-36.0); Mean Corpuscular Hemoglobin 24.2 pg (27.0-31.0); Mean Platelet Volume 8.8 fL (7.4-10.4); Platelet Count 191 10x3/uL (130-400); RBC Distribution Width 23.2 % (11.5-14.5); Red Blood Cell (RBC) Count 3.41 mill/uL (4.20-5.40); White Blood Cell (WBC) Count 8.6 10x3/uL (4.8-10.8)
[2023-09-28] MEDS: Rosuvastatin 10 MG TAB PO SCH (20:47)
[2023-09-28] MEDS: Acetaminophen 500 MG TAB PO PRN (20:47)
[2023-09-28 21:48] VITALS: BP 116/74; TEMP 99.1
[2023-09-29] MEDS ORDERED: Saccharomyces boulardii 250 MG CAP PO SCH (21:00)
== END 2023-09-28 21:23 | disposition short-term general hospital (02) | DRG 561 ==
LOC: MADMS 18:06
PROVIDERS: ADMIT Family Medicine; ATTEND Family Medicine
DX: T84.51XA Infection and inflammatory reaction due to internal right hip prosthesis, initial encounter (principal); D64.9 Anemia, unspecified; Z96.641 Presence of right artificial hip joint; I11.0 Hypertensive heart disease with heart failure; E11.9 Type 2 diabetes mellitus without complications; I50.9 Heart failure, unspecified; R53.81 Other malaise; I25.10 Atherosclerotic heart disease of native coronary artery without angina pectoris; M06.9 Rheumatoid arthritis, unspecified; K21.9 Gastro-esophageal reflux disease without esophagitis; K59.00 Constipation, unspecified; Z88.6 Allergy status to analgesic agent; Z88.8 Allergy status to other drugs, medicaments and biological substances; Z79.899 Other long term (current) drug therapy; Z79.82 Long term (current) use of aspirin; Z88.5 Allergy status to narcotic agent; Z95.1 Presence of aortocoronary bypass graft; Z95.810 Presence of automatic (implantable) cardiac defibrillator; Z90.49 Acquired absence of other specified parts of digestive tract; Z90.710 Acquired absence of both cervix and uterus; Z98.890 Other specified postprocedural states; Z87.891 Personal history of nicotine dependence
CPT/HCPCS: 71045; 80048; 80053; 82550; 82565; 83880; 84484; 85014; 85018; 85025; 85049; 86140; 87040; 87086; J0692; J1650; J3490; Q0162

== ENCOUNTER 2023-09-28 21:24 | Emergency (ER) | payer OTHER, MEDICAID, MEDICARE ==
[~2023-09-28 21:24] MED LIST changes: +Sodium Chloride 0.9% 100 ML BAG ONE; -Sodium Chloride 0.9% 500 ML BAG ONE
[2023-09-28 22:18] LABS: #Basophils 0.2 thou/uL (0.0-0.2); #Lymphocytes 0.4 thou/uL (1.20-3.40); #Monocytes 0.8 thou/uL (0.11-0.59); #Neutrophils 6.2 thou/uL (1.40-6.50); %Basophils 2.1 % (0.0-1.0); %Lymphocytes 5.7 % (21.0-51.0); %Monocytes 10.3 % (0.0-10.0); %Neutrophils 81.8 % (42.0-75.0); Hematocrit 26.6 % (36.0-47.0); Hemoglobin 7.9 g/dL (12.0-16.0); Mean Corpuscular HGB CONC 29.6 g/dL (32.0-36.0); Mean Corpuscular Hemoglobin 24.7 pg (27.0-31.0); Mean Corpuscular Volume 83.6 fl (78.0-98.0); Mean Platelet Volume 8.2 fL (7.4-10.4); Platelet Count 176 10x3/uL (130-400); RBC Distribution Width 23.5 % (11.5-14.5); Red Blood Cell (RBC) Count 3.19 mill/uL (4.20-5.40); White Blood Cell (WBC) Count 7.6 10x3/uL (4.8-10.8)
[2023-09-28 22:33] LABS: ALT (SGPT) 9 U/L (8-55); AST (SGOT) 20 U/L (5-34); Alkaline Phosphatase 70 U/L (40-110); Anion Gap 14 mmol/L (10-20); BUN (Urea Nitrogen) 23 mg/dL (9.8-20.1); Bilirubin, Total 0.5 mg/dL (0.2-1.2); Calc. Creatinine Clearance 0 mL/min (70-130); Calcium 8.6 mg/dL (7.8-10.44); Carbon Dioxide 24 mmol/L (23-31); Chloride 100 mmol/L (98-107); Estimated GFR 51; Globulin 2.8 g/dL (2.4-3.5); Glucose 97 mg/dL (80-115); Potassium 4.6 mmol/L (3.5-5.1); Protein, Total 5.8 g/dL (5.8-8.1); Sodium 133 mmol/L (136-145); Troponin I 0.188 ng/mL (< 0.028)
[2023-09-29 01:38] LABS: Troponin I 0.205 ng/mL (< 0.028)
== END 2023-09-29 01:53 | disposition short-term general hospital (02) ==
LOC: MADERS 21:24
DX: R79.89 Other specified abnormal findings of blood chemistry (principal); I25.10 Atherosclerotic heart disease of native coronary artery without angina pectoris; I50.9 Heart failure, unspecified; B96.5 Pseudomonas (aeruginosa) (mallei) (pseudomallei) as the cause of diseases classified elsewhere; Z87.891 Personal history of nicotine dependence; Z79.82 Long term (current) use of aspirin; Z79.899 Other long term (current) drug therapy
CPT/HCPCS: 71275; 83605; 83690; 84484; 93005; J1650

== ENCOUNTER 2023-10-02 15:50 | Inpatient (IN) | payer OTHER, MEDICAID ==
[2023-10-02] MEDS ORDERED: Ipratropium/Albuterol 3 ML NEB NEB PRN (17:54)
[2023-10-02] MEDS ORDERED: Nitroglycerin 0.4 MG TAB (25 Tab Bottle) SL PRN (17:54)
[2023-10-02] MEDS ORDERED: Bisacodyl 5 MG TAB PO PRN (17:54)
[2023-10-02] MEDS ORDERED: Lantiseptic Ointment 130 GM JAR TOP PRN (18:26)
[2023-10-02] MEDS: Vancomycin HCl 25 MG/ML ORAL SOLN PO SCH ×2 (19:00→23:47)
[2023-10-02] MEDS: Cefepime 1 GM in Sodium Chloride 0.9% 100 ML IVPB SCH (20:56)
[2023-10-02] MEDS: Rosuvastatin 10 MG TAB PO SCH (20:56)
[2023-10-02] MEDS: Hydroxychloroquine Sulfate 200 MG TAB PO SCH (20:56)
[2023-10-02] MEDS: Enoxaparin 40 MG (0.4 mL) SYRINGE SC SCH (20:57)
[2023-10-02] MEDS: Acetaminophen 500 MG TAB PO PRN (20:57)
[2023-10-02] MEDS: Ranolazine 500 MG ER.TAB PO SCH (20:57)
[2023-10-02] MEDS ORDERED: Clobetasol 0.05% Cream 15 gm Tube TOP SCH (21:00)
[2023-10-02] MEDS ORDERED: Cefepime 1 GM VIAL IVPB SCH (21:00)
[2023-10-03] MEDS: Vancomycin HCl 25 MG/ML ORAL SOLN PO SCH ×3 (05:59→17:22)
[2023-10-03] MEDS ORDERED: FLU VACC QS2023(65UP)/MF59C/PF 60 MCG/0.5 ML SYRINGE IM ONE (09:00)
[2023-10-03] MEDS: Aspirin Chewable 81 MG TAB PO SCH (10:05)
[2023-10-03] MEDS: Ranolazine 500 MG ER.TAB PO SCH ×2 (10:06→20:21)
[2023-10-03] MEDS: Leflunomide 10 mg Tablet PO SCH (10:06)
[2023-10-03] MEDS: Empagliflozin 10 MG TAB PO SCH (10:06)
[2023-10-03] MEDS: Bisoprolol Fumarate 5 MG TAB PO SCH (10:06)
[2023-10-03] MEDS: Potassium Chloride 20 MEQ TAB PO SCH (10:07)
[2023-10-03] MEDS: Ezetimibe 10 MG TAB PO SCH (10:07)
[2023-10-03] MEDS: DULoxetine 20 MG CAP PO SCH (10:07)
[2023-10-03] MEDS: Prasugrel 10 MG TAB PO SCH (10:07)
[2023-10-03] MEDS: Hydroxychloroquine Sulfate 200 MG TAB PO SCH ×2 (10:07→20:22)
[2023-10-03] MEDS: Cefepime 1 GM in Sodium Chloride 0.9% 100 ML IVPB SCH ×2 (10:08→20:22)
[2023-10-03] MEDS: Furosemide 40 MG TAB PO SCH (10:08)
[2023-10-03] MEDS: Cyclobenzaprine 10 MG TAB PO SCH (10:08)
[2023-10-03] MEDS: Saccharomyces boulardii 250 MG CAP PO SCH (10:09)
[2023-10-03] MEDS: Magnesium Oxide 400 MG TAB PO SCH (10:09)
[2023-10-03] MEDS: Spironolactone 25 MG TAB PO SCH (10:09)
[2023-10-03] MEDS: Acetaminophen 500 MG TAB PO PRN ×2 (10:16→20:21)
[2023-10-03] MEDS: Rosuvastatin 10 MG TAB PO SCH (20:21)
[2023-10-03] MEDS: Enoxaparin 40 MG (0.4 mL) SYRINGE SC SCH (20:22)
[2023-10-03] MEDS: guaiFENesin/DM ER PO SCH (20:22)
[2023-10-04 08:07] LABS: Anion Gap 16 mmol/L (10-20); BUN (Urea Nitrogen) 11 mg/dL (9.8-20.1); Calc. Creatinine Clearance 70 mL/min (70-130); Calcium 8.3 mg/dL (7.8-10.44); Carbon Dioxide 15 mmol/L (23-31); Chloride 107 mmol/L (98-107); Estimated GFR 84; Glucose 88 mg/dL (80-115); Potassium 3.7 mmol/L (3.5-5.1); Sodium 134 mmol/L (136-145)
[2023-10-04] MEDS: Hydroxychloroquine Sulfate 200 MG TAB PO SCH ×2 (08:56→21:05)
[2023-10-04] MEDS: Magnesium Oxide 400 MG TAB PO SCH (08:56)
[2023-10-04] MEDS: Ezetimibe 10 MG TAB PO SCH (08:56)
[2023-10-04] MEDS: Furosemide 40 MG TAB PO SCH (08:57)
[2023-10-04] MEDS: Bisoprolol Fumarate 5 MG TAB PO SCH (08:57)
[2023-10-04] MEDS: Potassium Chloride 20 MEQ TAB PO SCH (08:57)
[2023-10-04] MEDS: Prasugrel 10 MG TAB PO SCH (08:57)
[2023-10-04] MEDS: Saccharomyces boulardii 250 MG CAP PO SCH (08:57)
[2023-10-04] MEDS: Ranolazine 500 MG ER.TAB PO SCH ×2 (08:57→21:05)
[2023-10-04] MEDS: Aspirin Chewable 81 MG TAB PO SCH (08:57)
[2023-10-04] MEDS: guaiFENesin/DM ER PO SCH ×2 (08:57→21:04)
[2023-10-04] MEDS: Leflunomide 10 mg Tablet PO SCH (08:57)
[2023-10-04] MEDS: Empagliflozin 10 MG TAB PO SCH (08:58)
[2023-10-04] MEDS: Cyclobenzaprine 10 MG TAB PO SCH (08:58)
[2023-10-04] MEDS: DULoxetine 20 MG CAP PO SCH (08:58)
[2023-10-04] MEDS: Cefepime 1 GM in Sodium Chloride 0.9% 100 ML IVPB SCH ×2 (08:58→21:02)
[2023-10-04] MEDS: Spironolactone 25 MG TAB PO SCH (08:58)
[2023-10-04] MEDS: Acetaminophen 500 MG TAB PO PRN (09:47)
[2023-10-04 10:51] LABS: Hematocrit 29.8 % (36.0-47.0); Hemoglobin 8.6 g/dL (12.0-16.0); Mean Corpuscular HGB CONC 28.8 g/dL (32.0-36.0); Mean Corpuscular Hemoglobin 24.4 pg (27.0-31.0); Mean Corpuscular Volume 84.7 fl (78.0-98.0); Mean Platelet Volume 11.2 fL (7.4-10.4); Platelet Count 135 10x3/uL (130-400); Red Blood Cell (RBC) Count 3.52 mill/uL (4.20-5.40); White Blood Cell (WBC) Count 4.1 10x3/uL (4.8-10.8)
[2023-10-04 10:52] LABS: MDiff Complete? YES; Manual Diff?? YES
[2023-10-04 11:38] LABS: Band 14 % (5-11); Eosinophils 4 % (0-10); Lymphocytes 11 % (21-51); Monocytes 10 % (0-10); Neutrophil 60 % (42-75); Reactive Lymphocytes 1 % (0-10)
[2023-10-04] MEDS: Vancomycin HCl 25 MG/ML ORAL SOLN PO SCH ×5 (11:40→23:40)
[2023-10-04 11:44] LABS: Anisocytosis SLIGHT = 6-15 cells (100X) (0-5/hpf); Giant Platelets SLIGHT HPF (0-5); Hypochromia SLIGHT = 6-15 cells (100X) (0-5/hpf); Platelet Adequacy Comment Appears Adequate; Poikilocytosis SLIGHT = 6-15 cells (100X) (0-5/hpf); Polychromasia SLIGHT = 2-3 cells (100X) (0-2/hpf)
[2023-10-04] MEDS: Enoxaparin 40 MG (0.4 mL) SYRINGE SC SCH (21:04)
[2023-10-04] MEDS: Rosuvastatin 10 MG TAB PO SCH (21:05)
[2023-10-05] MEDS: Vancomycin HCl 25 MG/ML ORAL SOLN PO SCH ×4 (05:12→23:05)
[2023-10-05] MEDS: Ranolazine 500 MG ER.TAB PO SCH ×2 (09:11→21:57)
[2023-10-05] MEDS: Cyclobenzaprine 10 MG TAB PO SCH (09:11)
[2023-10-05] MEDS: Prasugrel 10 MG TAB PO SCH (09:11)
[2023-10-05] MEDS: guaiFENesin/DM ER PO SCH ×2 (09:11→21:57)
[2023-10-05] MEDS: Ezetimibe 10 MG TAB PO SCH (09:11)
[2023-10-05] MEDS: Aspirin Chewable 81 MG TAB PO SCH (09:12)
[2023-10-05] MEDS: Magnesium Oxide 400 MG TAB PO SCH (09:12)
[2023-10-05] MEDS: Bisoprolol Fumarate 5 MG TAB PO SCH (09:12)
[2023-10-05] MEDS: Potassium Chloride 20 MEQ TAB PO SCH (09:12)
[2023-10-05] MEDS: DULoxetine 20 MG CAP PO SCH (09:12)
[2023-10-05] MEDS: Saccharomyces boulardii 250 MG CAP PO SCH (09:12)
[2023-10-05] MEDS: Leflunomide 10 mg Tablet PO SCH (09:12)
[2023-10-05] MEDS: Hydroxychloroquine Sulfate 200 MG TAB PO SCH ×2 (09:12→21:57)
[2023-10-05] MEDS: Furosemide 40 MG TAB PO SCH (09:13)
[2023-10-05] MEDS: Spironolactone 25 MG TAB PO SCH (09:13)
[2023-10-05] MEDS: Cefepime 1 GM in Sodium Chloride 0.9% 100 ML IVPB SCH ×2 (09:13→21:56)
[2023-10-05] MEDS: Empagliflozin 10 MG TAB PO SCH (09:13)
[2023-10-05] MEDS: Enoxaparin 40 MG (0.4 mL) SYRINGE SC SCH (21:56)
[2023-10-05] MEDS: Rosuvastatin 10 MG TAB PO SCH (21:57)
[2023-10-06] MEDS: Vancomycin HCl 25 MG/ML ORAL SOLN PO SCH ×4 (06:06→23:48)
[2023-10-06] MEDS: Bisoprolol Fumarate 5 MG TAB PO SCH (09:28)
[2023-10-06] MEDS: Aspirin Chewable 81 MG TAB PO SCH (09:28)
[2023-10-06] MEDS: DULoxetine 20 MG CAP PO SCH (09:28)
[2023-10-06] MEDS: Prasugrel 10 MG TAB PO SCH (09:28)
[2023-10-06] MEDS: Spironolactone 25 MG TAB PO SCH (09:31)
[2023-10-06] MEDS: Furosemide 40 MG TAB PO SCH (09:32)
[2023-10-06] MEDS: Potassium Chloride 20 MEQ TAB PO SCH (09:32)
[2023-10-06] MEDS: Saccharomyces boulardii 250 MG CAP PO SCH (09:32)
[2023-10-06] MEDS: Ranolazine 500 MG ER.TAB PO SCH ×2 (09:32→21:37)
[2023-10-06] MEDS: Ezetimibe 10 MG TAB PO SCH (09:32)
[2023-10-06] MEDS: guaiFENesin/DM ER PO SCH ×2 (09:32→21:37)
[2023-10-06] MEDS: Hydroxychloroquine Sulfate 200 MG TAB PO SCH ×2 (09:32→21:37)
[2023-10-06] MEDS: Leflunomide 10 mg Tablet PO SCH (09:33)
[2023-10-06] MEDS: Magnesium Oxide 400 MG TAB PO SCH (09:33)
[2023-10-06] MEDS: Empagliflozin 10 MG TAB PO SCH (09:33)
[2023-10-06] MEDS: Cyclobenzaprine 10 MG TAB PO SCH (09:33)
[2023-10-06] MEDS: Cefepime 1 GM in Sodium Chloride 0.9% 100 ML IVPB SCH ×2 (09:34→21:36)
[2023-10-06] MEDS: Acetaminophen 500 MG TAB PO PRN (19:07)
[2023-10-06] MEDS: Enoxaparin 40 MG (0.4 mL) SYRINGE SC SCH (21:36)
[2023-10-06] MEDS: Rosuvastatin 10 MG TAB PO SCH (21:37)
[2023-10-07] MEDS: Vancomycin HCl 25 MG/ML ORAL SOLN PO SCH ×4 (07:51→23:14)
[2023-10-07] MEDS: Aspirin Chewable 81 MG TAB PO SCH (09:17)
[2023-10-07] MEDS: Cefepime 1 GM in Sodium Chloride 0.9% 100 ML IVPB SCH ×2 (09:17→23:17)
[2023-10-07] MEDS: Furosemide 40 MG TAB PO SCH (09:18)
[2023-10-07] MEDS: Bisoprolol Fumarate 5 MG TAB PO SCH (09:18)
[2023-10-07] MEDS: Cyclobenzaprine 10 MG TAB PO SCH (09:18)
[2023-10-07] MEDS: Saccharomyces boulardii 250 MG CAP PO SCH (09:18)
[2023-10-07] MEDS: DULoxetine 20 MG CAP PO SCH (09:18)
[2023-10-07] MEDS: Magnesium Oxide 400 MG TAB PO SCH (09:18)
[2023-10-07] MEDS: Empagliflozin 10 MG TAB PO SCH (09:18)
[2023-10-07] MEDS: Ezetimibe 10 MG TAB PO SCH (09:18)
[2023-10-07] MEDS: guaiFENesin/DM ER PO SCH ×2 (09:18→23:16)
[2023-10-07] MEDS: Potassium Chloride 20 MEQ TAB PO SCH (09:18)
[2023-10-07] MEDS: Spironolactone 25 MG TAB PO SCH (09:18)
[2023-10-07] MEDS: Leflunomide 10 mg Tablet PO SCH (09:18)
[2023-10-07] MEDS: Prasugrel 10 MG TAB PO SCH (09:18)
[2023-10-07] MEDS: Ranolazine 500 MG ER.TAB PO SCH ×2 (09:18→23:17)
[2023-10-07] MEDS: Hydroxychloroquine Sulfate 200 MG TAB PO SCH ×2 (09:18→23:16)
[2023-10-07] MEDS: Rosuvastatin 10 MG TAB PO SCH (23:16)
[2023-10-07] MEDS: Enoxaparin 40 MG (0.4 mL) SYRINGE SC SCH (23:17)
[2023-10-07] MEDS: Acetaminophen 500 MG TAB PO PRN (23:25)
[2023-10-08] MEDS: Vancomycin HCl 25 MG/ML ORAL SOLN PO SCH ×4 (05:50→23:08)
[2023-10-08 06:32] LABS: Anion Gap 16 mmol/L (10-20); BUN (Urea Nitrogen) 12 mg/dL (9.8-20.1); Calc. Creatinine Clearance 68 mL/min (70-130); Calcium 8.6 mg/dL (7.8-10.44); Chloride 111 mmol/L (98-107); Estimated GFR 82; Glucose 91 mg/dL (80-115); Potassium 3.7 mmol/L (3.5-5.1); Sodium 140 mmol/L (136-145)
[2023-10-08 06:59] LABS: Carbon Dioxide 17 mmol/L (23-31)
[2023-10-08] MEDS: DULoxetine 20 MG CAP PO SCH (08:37)
[2023-10-08] MEDS: Empagliflozin 10 MG TAB PO SCH (08:37)
[2023-10-08] MEDS: Furosemide 40 MG TAB PO SCH (08:37)
[2023-10-08] MEDS: guaiFENesin/DM ER PO SCH ×2 (08:37→20:54)
[2023-10-08] MEDS: Potassium Chloride 20 MEQ TAB PO SCH (08:37)
[2023-10-08] MEDS: Saccharomyces boulardii 250 MG CAP PO SCH (08:37)
[2023-10-08] MEDS: Ranolazine 500 MG ER.TAB PO SCH ×2 (08:37→20:54)
[2023-10-08] MEDS: Leflunomide 10 mg Tablet PO SCH (08:37)
[2023-10-08] MEDS: Prasugrel 10 MG TAB PO SCH (08:37)
[2023-10-08] MEDS: Cyclobenzaprine 10 MG TAB PO SCH (08:37)
[2023-10-08] MEDS: Spironolactone 25 MG TAB PO SCH (08:37)
[2023-10-08] MEDS: Aspirin Chewable 81 MG TAB PO SCH (08:37)
[2023-10-08] MEDS: Bisoprolol Fumarate 5 MG TAB PO SCH (08:37)
[2023-10-08] MEDS: Hydroxychloroquine Sulfate 200 MG TAB PO SCH ×2 (08:37→20:54)
[2023-10-08] MEDS: Cefepime 1 GM in Sodium Chloride 0.9% 100 ML IVPB SCH ×2 (08:38→20:53)
[2023-10-08] MEDS: Ezetimibe 10 MG TAB PO SCH (08:38)
[2023-10-08] MEDS: Magnesium Oxide 400 MG TAB PO SCH (08:38)
[2023-10-08] MEDS: Mag-Al Plus 1200/1200/120 MG (30 mL) UDCUP PO PRN (10:53)
[2023-10-08] MEDS: Ondansetron ODT 4 MG TAB SL PRN (10:53)
[2023-10-08] MEDS ORDERED: [UNRECOGNIZED DRUG - MIXTURE] TOP PRN (13:40)
[2023-10-08] MEDS: [UNRECOGNIZED DRUG - MIXTURE] TOP SCH ×6 (15:04→15:21)
[2023-10-08] MEDS: Clobetasol 0.05% Cream 15 gm Tube TOP SCH ×6 (15:05→15:21)
[2023-10-08] MEDS: Acetaminophen 500 MG TAB PO PRN (20:54)
[2023-10-08] MEDS: Rosuvastatin 10 MG TAB PO SCH (20:54)
[2023-10-08] MEDS: Enoxaparin 40 MG (0.4 mL) SYRINGE SC SCH (20:54)
[2023-10-09] MEDS: Vancomycin HCl 25 MG/ML ORAL SOLN PO SCH ×4 (05:17→23:55)
[2023-10-09] MEDS: Saccharomyces boulardii 250 MG CAP PO SCH (08:44)
[2023-10-09] MEDS: Cefepime 1 GM in Sodium Chloride 0.9% 100 ML IVPB SCH ×2 (08:44→21:12)
[2023-10-09] MEDS: Furosemide 40 MG TAB PO SCH (08:45)
[2023-10-09] MEDS: Hydroxychloroquine Sulfate 200 MG TAB PO SCH ×2 (08:45→21:13)
[2023-10-09] MEDS: Ranolazine 500 MG ER.TAB PO SCH ×2 (08:46→21:13)
[2023-10-09] MEDS: Ezetimibe 10 MG TAB PO SCH (08:46)
[2023-10-09] MEDS: Prasugrel 10 MG TAB PO SCH (08:46)
[2023-10-09] MEDS: Bisoprolol Fumarate 5 MG TAB PO SCH (08:46)
[2023-10-09] MEDS: Potassium Chloride 20 MEQ TAB PO SCH (08:46)
[2023-10-09] MEDS: Magnesium Oxide 400 MG TAB PO SCH (08:46)
[2023-10-09] MEDS: Spironolactone 25 MG TAB PO SCH (08:46)
[2023-10-09] MEDS: Leflunomide 10 mg Tablet PO SCH (08:46)
[2023-10-09] MEDS: Aspirin Chewable 81 MG TAB PO SCH (08:47)
[2023-10-09] MEDS: DULoxetine 20 MG CAP PO SCH (08:47)
[2023-10-09] MEDS: Empagliflozin 10 MG TAB PO SCH (08:47)
[2023-10-09] MEDS: Cyclobenzaprine 10 MG TAB PO SCH (08:47)
[2023-10-09] MEDS: guaiFENesin/DM ER PO SCH ×2 (08:47→21:13)
[2023-10-09] MEDS: Mag-Al Plus 1200/1200/120 MG (30 mL) UDCUP PO PRN ×2 (09:13→22:32)
[2023-10-09] MEDS: Rosuvastatin 10 MG TAB PO SCH (21:13)
[2023-10-09] MEDS: Enoxaparin 40 MG (0.4 mL) SYRINGE SC SCH (21:13)
[2023-10-09] MEDS: Ondansetron ODT 4 MG TAB SL PRN (22:41)
[2023-10-10] MEDS: Vancomycin HCl 25 MG/ML ORAL SOLN PO SCH ×3 (05:27→17:59)
[2023-10-10] MEDS: guaiFENesin/DM ER PO SCH ×2 (08:59→20:39)
[2023-10-10] MEDS: DULoxetine 20 MG CAP PO SCH (08:59)
[2023-10-10] MEDS: Cyclobenzaprine 10 MG TAB PO SCH (08:59)
[2023-10-10] MEDS: Ezetimibe 10 MG TAB PO SCH (08:59)
[2023-10-10] MEDS: Ranolazine 500 MG ER.TAB PO SCH ×2 (08:59→20:39)
[2023-10-10] MEDS: Magnesium Oxide 400 MG TAB PO SCH (08:59)
[2023-10-10] MEDS: Saccharomyces boulardii 250 MG CAP PO SCH (08:59)
[2023-10-10] MEDS: Aspirin Chewable 81 MG TAB PO SCH (08:59)
[2023-10-10] MEDS: Leflunomide 10 mg Tablet PO SCH (08:59)
[2023-10-10] MEDS: Empagliflozin 10 MG TAB PO SCH (08:59)
[2023-10-10] MEDS: Spironolactone 25 MG TAB PO SCH (09:00)
[2023-10-10] MEDS: Hydroxychloroquine Sulfate 200 MG TAB PO SCH ×2 (09:00→20:39)
[2023-10-10] MEDS: Furosemide 40 MG TAB PO SCH (09:00)
[2023-10-10] MEDS: Bisoprolol Fumarate 5 MG TAB PO SCH (09:00)
[2023-10-10] MEDS: Cefepime 1 GM in Sodium Chloride 0.9% 100 ML IVPB SCH ×2 (09:00→20:37)
[2023-10-10] MEDS: Potassium Chloride 20 MEQ TAB PO SCH (09:00)
[2023-10-10] MEDS: Prasugrel 10 MG TAB PO SCH (09:00)
[2023-10-10] MEDS: Enoxaparin 40 MG (0.4 mL) SYRINGE SC SCH (20:39)
[2023-10-10] MEDS: Rosuvastatin 10 MG TAB PO SCH (20:39)
[2023-10-11] MEDS: Vancomycin HCl 25 MG/ML ORAL SOLN PO SCH ×5 (01:18→23:09)
[2023-10-11 05:18] LABS: Hematocrit 31.3 % (36.0-47.0); Mean Corpuscular HGB CONC 28.9 g/dL (32.0-36.0); Mean Corpuscular Hemoglobin 24.6 pg (27.0-31.0); Mean Corpuscular Volume 85.1 fl (78.0-98.0); Mean Platelet Volume 9.5 fL (7.4-10.4); Platelet Count 177 10x3/uL (130-400); RBC Distribution Width 22.3 % (11.5-14.5); Red Blood Cell (RBC) Count 3.68 mill/uL (4.20-5.40); White Blood Cell (WBC) Count 7.8 10x3/uL (4.8-10.8)
[2023-10-11 05:42] LABS: ALT (SGPT) 8 U/L (8-55); AST (SGOT) 13 U/L (5-34); Albumin 3.3 g/dL (3.4-4.8); Alkaline Phosphatase 67 U/L (40-110); Anion Gap 13 mmol/L (10-20); BUN (Urea Nitrogen) 15 mg/dL (9.8-20.1); Bilirubin, Total 0.3 mg/dL (0.2-1.2); CRP (Inflammatory) Less than 0.50 mg/dL (= or < 0.5); Calc. Creatinine Clearance 68 mL/min (70-130); Calcium 8.8 mg/dL (7.8-10.44); Carbon Dioxide 20 mmol/L (23-31); Chloride 110 mmol/L (98-107); Estimated GFR 84; Globulin 2.6 g/dL (2.4-3.5); Glucose 129 mg/dL (80-115); Potassium 4.9 mmol/L (3.5-5.1); Protein, Total 5.9 g/dL (5.8-8.1); Sodium 138 mmol/L (136-145)
[2023-10-11] MEDS: Cefepime 1 GM in Sodium Chloride 0.9% 100 ML IVPB SCH ×2 (07:56→20:28)
[2023-10-11] MEDS: Ranolazine 500 MG ER.TAB PO SCH ×2 (07:57→20:29)
[2023-10-11] MEDS: Aspirin Chewable 81 MG TAB PO SCH (07:57)
[2023-10-11] MEDS: guaiFENesin/DM ER PO SCH ×2 (07:57→20:29)
[2023-10-11] MEDS: DULoxetine 20 MG CAP PO SCH (07:57)
[2023-10-11] MEDS: Magnesium Oxide 400 MG TAB PO SCH (07:57)
[2023-10-11] MEDS: Spironolactone 25 MG TAB PO SCH (07:57)
[2023-10-11] MEDS: Prasugrel 10 MG TAB PO SCH (07:57)
[2023-10-11] MEDS: Cyclobenzaprine 10 MG TAB PO SCH (07:58)
[2023-10-11] MEDS: Ezetimibe 10 MG TAB PO SCH (07:58)
[2023-10-11] MEDS: Empagliflozin 10 MG TAB PO SCH (07:58)
[2023-10-11] MEDS: Furosemide 40 MG TAB PO SCH (07:58)
[2023-10-11] MEDS: Potassium Chloride 20 MEQ TAB PO SCH (07:58)
[2023-10-11] MEDS: Bisoprolol Fumarate 5 MG TAB PO SCH (07:58)
[2023-10-11] MEDS: Leflunomide 10 mg Tablet PO SCH (07:58)
[2023-10-11] MEDS: Saccharomyces boulardii 250 MG CAP PO SCH (07:58)
[2023-10-11] MEDS: Hydroxychloroquine Sulfate 200 MG TAB PO SCH ×2 (07:59→20:29)
[2023-10-11] MEDS: Enoxaparin 40 MG (0.4 mL) SYRINGE SC SCH (20:28)
[2023-10-11] MEDS: Rosuvastatin 10 MG TAB PO SCH (20:29)
[2023-10-12] MEDS: Vancomycin HCl 25 MG/ML ORAL SOLN PO SCH ×4 (05:25→23:30)
[2023-10-12] MEDS: Cefepime 1 GM in Sodium Chloride 0.9% 100 ML IVPB SCH ×2 (08:14→20:13)
[2023-10-12] MEDS: Empagliflozin 10 MG TAB PO SCH (08:17)
[2023-10-12] MEDS: Hydroxychloroquine Sulfate 200 MG TAB PO SCH ×2 (08:17→20:13)
[2023-10-12] MEDS: Saccharomyces boulardii 250 MG CAP PO SCH (08:17)
[2023-10-12] MEDS: Cyclobenzaprine 10 MG TAB PO SCH (08:17)
[2023-10-12] MEDS: Magnesium Oxide 400 MG TAB PO SCH (08:17)
[2023-10-12] MEDS: Spironolactone 25 MG TAB PO SCH (08:17)
[2023-10-12] MEDS: Leflunomide 10 mg Tablet PO SCH (08:17)
[2023-10-12] MEDS: guaiFENesin/DM ER PO SCH ×2 (08:17→20:13)
[2023-10-12] MEDS: DULoxetine 20 MG CAP PO SCH (08:17)
[2023-10-12] MEDS: Ezetimibe 10 MG TAB PO SCH (08:18)
[2023-10-12] MEDS: Furosemide 40 MG TAB PO SCH (08:18)
[2023-10-12] MEDS: Aspirin Chewable 81 MG TAB PO SCH (08:19)
[2023-10-12] MEDS: Bisoprolol Fumarate 5 MG TAB PO SCH (08:19)
[2023-10-12] MEDS: Potassium Chloride 20 MEQ TAB PO SCH (08:19)
[2023-10-12] MEDS: Ranolazine 500 MG ER.TAB PO SCH ×2 (08:19→20:13)
[2023-10-12] MEDS: Prasugrel 10 MG TAB PO SCH (08:19)
[2023-10-12] MEDS: Enoxaparin 40 MG (0.4 mL) SYRINGE SC SCH (20:13)
[2023-10-12] MEDS: Rosuvastatin 10 MG TAB PO SCH (20:13)
[2023-10-13] MEDS: Vancomycin HCl 25 MG/ML ORAL SOLN PO SCH ×3 (05:34→18:08)
[2023-10-13] MEDS: Cyclobenzaprine 10 MG TAB PO SCH (08:37)
[2023-10-13] MEDS: Leflunomide 10 mg Tablet PO SCH (08:37)
[2023-10-13] MEDS: Aspirin Chewable 81 MG TAB PO SCH (08:37)
[2023-10-13] MEDS: Hydroxychloroquine Sulfate 200 MG TAB PO SCH ×2 (08:37→20:48)
[2023-10-13] MEDS: DULoxetine 20 MG CAP PO SCH (08:37)
[2023-10-13] MEDS: Saccharomyces boulardii 250 MG CAP PO SCH (08:37)
[2023-10-13] MEDS: guaiFENesin/DM ER PO SCH ×2 (08:37→20:48)
[2023-10-13] MEDS: Potassium Chloride 20 MEQ TAB PO SCH (08:38)
[2023-10-13] MEDS: Empagliflozin 10 MG TAB PO SCH (08:38)
[2023-10-13] MEDS: Spironolactone 25 MG TAB PO SCH (08:38)
[2023-10-13] MEDS: Ezetimibe 10 MG TAB PO SCH (08:38)
[2023-10-13] MEDS: Prasugrel 10 MG TAB PO SCH (08:38)
[2023-10-13] MEDS: Ranolazine 500 MG ER.TAB PO SCH ×2 (08:38→20:48)
[2023-10-13] MEDS: Cefepime 1 GM in Sodium Chloride 0.9% 100 ML IVPB SCH ×2 (08:39→20:47)
[2023-10-13] MEDS: Magnesium Oxide 400 MG TAB PO SCH (08:39)
[2023-10-13] MEDS: Furosemide 40 MG TAB PO SCH (08:39)
[2023-10-13] MEDS: Bisoprolol Fumarate 5 MG TAB PO SCH (08:39)
[2023-10-13] MEDS: Mag-Al Plus 1200/1200/120 MG (30 mL) UDCUP PO PRN (12:31)
[2023-10-13] MEDS: Rosuvastatin 10 MG TAB PO SCH (20:48)
[2023-10-13] MEDS: Enoxaparin 40 MG (0.4 mL) SYRINGE SC SCH (20:48)
[2023-10-13] MEDS ORDERED: Vancomycin HCl 125 MG Capsule PO SCH (23:59)
[2023-10-14] MEDS: Vancomycin HCl 125 MG Capsule PO SCH ×3 (05:40→17:55)
[2023-10-14] MEDS: Spironolactone 25 MG TAB PO SCH (09:20)
[2023-10-14] MEDS: Cefepime 1 GM in Sodium Chloride 0.9% 100 ML IVPB SCH ×2 (09:20→20:50)
[2023-10-14] MEDS: guaiFENesin/DM ER PO SCH ×2 (09:20→20:50)
[2023-10-14] MEDS: Empagliflozin 10 MG TAB PO SCH (09:20)
[2023-10-14] MEDS: Leflunomide 10 mg Tablet PO SCH (09:20)
[2023-10-14] MEDS: Potassium Chloride 20 MEQ TAB PO SCH (09:20)
[2023-10-14] MEDS: Furosemide 40 MG TAB PO SCH (09:21)
[2023-10-14] MEDS: Aspirin Chewable 81 MG TAB PO SCH (09:21)
[2023-10-14] MEDS: Cyclobenzaprine 10 MG TAB PO SCH (09:21)
[2023-10-14] MEDS: Prasugrel 10 MG TAB PO SCH (09:21)
[2023-10-14] MEDS: Ranolazine 500 MG ER.TAB PO SCH ×2 (09:21→20:50)
[2023-10-14] MEDS: Saccharomyces boulardii 250 MG CAP PO SCH (09:21)
[2023-10-14] MEDS: Magnesium Oxide 400 MG TAB PO SCH (09:21)
[2023-10-14] MEDS: Bisoprolol Fumarate 5 MG TAB PO SCH (09:21)
[2023-10-14] MEDS: Hydroxychloroquine Sulfate 200 MG TAB PO SCH ×2 (09:21→20:50)
[2023-10-14] MEDS: DULoxetine 20 MG CAP PO SCH (09:21)
[2023-10-14] MEDS: Ezetimibe 10 MG TAB PO SCH (09:21)
[2023-10-14] MEDS: Enoxaparin 40 MG (0.4 mL) SYRINGE SC SCH (20:50)
[2023-10-14] MEDS: Rosuvastatin 10 MG TAB PO SCH (20:50)
[2023-10-15] MEDS: Vancomycin HCl 125 MG Capsule PO SCH ×4 (00:03→17:39)
[2023-10-15] MEDS: Ranolazine 500 MG ER.TAB PO SCH ×2 (09:15→20:34)
[2023-10-15] MEDS: guaiFENesin/DM ER PO SCH ×2 (09:15→20:34)
[2023-10-15] MEDS: Leflunomide 10 mg Tablet PO SCH (09:16)
[2023-10-15] MEDS: Potassium Chloride 20 MEQ TAB PO SCH (09:16)
[2023-10-15] MEDS: Spironolactone 25 MG TAB PO SCH (09:16)
[2023-10-15] MEDS: Aspirin Chewable 81 MG TAB PO SCH (09:16)
[2023-10-15] MEDS: Furosemide 40 MG TAB PO SCH (09:16)
[2023-10-15] MEDS: DULoxetine 20 MG CAP PO SCH (09:16)
[2023-10-15] MEDS: Cyclobenzaprine 10 MG TAB PO SCH (09:16)
[2023-10-15] MEDS: Empagliflozin 10 MG TAB PO SCH (09:16)
[2023-10-15] MEDS: Hydroxychloroquine Sulfate 200 MG TAB PO SCH ×2 (09:16→20:34)
[2023-10-15] MEDS: Ezetimibe 10 MG TAB PO SCH (09:16)
[2023-10-15] MEDS: Prasugrel 10 MG TAB PO SCH (09:16)
[2023-10-15] MEDS: Magnesium Oxide 400 MG TAB PO SCH (09:16)
[2023-10-15] MEDS: Bisoprolol Fumarate 5 MG TAB PO SCH (09:16)
[2023-10-15] MEDS: Saccharomyces boulardii 250 MG CAP PO SCH (09:17)
[2023-10-15] MEDS: Cefepime 1 GM in Sodium Chloride 0.9% 100 ML IVPB SCH ×2 (09:17→20:35)
[2023-10-15] MEDS: Rosuvastatin 10 MG TAB PO SCH (20:34)
[2023-10-15] MEDS: Enoxaparin 40 MG (0.4 mL) SYRINGE SC SCH (20:35)
[2023-10-16] MEDS: Vancomycin HCl 125 MG Capsule PO SCH ×4 (00:41→17:47)
[2023-10-16] MEDS: DULoxetine 20 MG CAP PO SCH (08:43)
[2023-10-16] MEDS: Ezetimibe 10 MG TAB PO SCH (08:43)
[2023-10-16] MEDS: Cefepime 1 GM in Sodium Chloride 0.9% 100 ML IVPB SCH ×2 (08:43→21:53)
[2023-10-16] MEDS: Cyclobenzaprine 10 MG TAB PO SCH (08:44)
[2023-10-16] MEDS: Bisoprolol Fumarate 5 MG TAB PO SCH (08:44)
[2023-10-16] MEDS: Spironolactone 25 MG TAB PO SCH (08:44)
[2023-10-16] MEDS: Hydroxychloroquine Sulfate 200 MG TAB PO SCH ×2 (08:44→21:56)
[2023-10-16] MEDS: guaiFENesin/DM ER PO SCH ×2 (08:44→21:56)
[2023-10-16] MEDS: Furosemide 40 MG TAB PO SCH (08:44)
[2023-10-16] MEDS: Prasugrel 10 MG TAB PO SCH (08:44)
[2023-10-16] MEDS: Leflunomide 10 mg Tablet PO SCH (08:44)
[2023-10-16] MEDS: Ranolazine 500 MG ER.TAB PO SCH ×2 (08:44→21:56)
[2023-10-16] MEDS: Magnesium Oxide 400 MG TAB PO SCH (08:45)
[2023-10-16] MEDS: Empagliflozin 10 MG TAB PO SCH (08:45)
[2023-10-16] MEDS: Saccharomyces boulardii 250 MG CAP PO SCH (08:45)
[2023-10-16] MEDS: Aspirin Chewable 81 MG TAB PO SCH (08:45)
[2023-10-16] MEDS: Potassium Chloride 20 MEQ TAB PO SCH (08:46)
[2023-10-16] MEDS ORDERED: Vancomycin HCl 125 MG Capsule PO SCH (12:00)
[2023-10-16] MEDS: Enoxaparin 40 MG (0.4 mL) SYRINGE SC SCH (21:56)
[2023-10-16] MEDS: Rosuvastatin 10 MG TAB PO SCH (21:56)
[2023-10-17] MEDS: Vancomycin HCl 125 MG Capsule PO SCH ×4 (00:17→18:29)
[2023-10-17] MEDS: guaiFENesin/DM ER PO SCH ×2 (09:00→21:42)
[2023-10-17] MEDS: Leflunomide 10 mg Tablet PO SCH (09:00)
[2023-10-17] MEDS: DULoxetine 20 MG CAP PO SCH (09:00)
[2023-10-17] MEDS: Bisoprolol Fumarate 5 MG TAB PO SCH (09:01)
[2023-10-17] MEDS: Saccharomyces boulardii 250 MG CAP PO SCH (09:01)
[2023-10-17] MEDS: Hydroxychloroquine Sulfate 200 MG TAB PO SCH ×2 (09:01→21:41)
[2023-10-17] MEDS: Empagliflozin 10 MG TAB PO SCH (09:01)
[2023-10-17] MEDS: Potassium Chloride 20 MEQ TAB PO SCH (09:01)
[2023-10-17] MEDS: Furosemide 40 MG TAB PO SCH (09:01)
[2023-10-17] MEDS: Prasugrel 10 MG TAB PO SCH (09:01)
[2023-10-17] MEDS: Cyclobenzaprine 10 MG TAB PO SCH (09:02)
[2023-10-17] MEDS: Aspirin Chewable 81 MG TAB PO SCH (09:02)
[2023-10-17] MEDS: Ezetimibe 10 MG TAB PO SCH (09:02)
[2023-10-17] MEDS: Spironolactone 25 MG TAB PO SCH (09:02)
[2023-10-17] MEDS: Cefepime 1 GM in Sodium Chloride 0.9% 100 ML IVPB SCH ×2 (09:02→21:40)
[2023-10-17] MEDS: Ranolazine 500 MG ER.TAB PO SCH ×2 (09:02→21:41)
[2023-10-17] MEDS: Magnesium Oxide 400 MG TAB PO SCH (09:02)
[2023-10-17] MEDS: Enoxaparin 40 MG (0.4 mL) SYRINGE SC SCH (21:40)
[2023-10-17] MEDS: Rosuvastatin 10 MG TAB PO SCH (21:41)
[2023-10-17] MEDS: Mag-Al Plus 1200/1200/120 MG (30 mL) UDCUP PO PRN (22:27)
[2023-10-18] MEDS: Vancomycin HCl 125 MG Capsule PO SCH ×6 (00:14→23:23)
[2023-10-18 06:06] LABS: ALT (SGPT) 15 U/L (8-55); AST (SGOT) 20 U/L (5-34); Albumin 3.3 g/dL (3.4-4.8); Alkaline Phosphatase 68 U/L (40-110); Anion Gap 15 mmol/L (10-20); BUN (Urea Nitrogen) 19 mg/dL (9.8-20.1); Bilirubin, Total 0.3 mg/dL (0.2-1.2); Calc. Creatinine Clearance 54 mL/min (70-130); Calcium 8.9 mg/dL (7.8-10.44); Carbon Dioxide 20 mmol/L (23-31); Chloride 109 mmol/L (98-107); Estimated GFR 63; Globulin 2.8 g/dL (2.4-3.5); Glucose 103 mg/dL (80-115); Potassium 4.6 mmol/L (3.5-5.1); Protein, Total 6.1 g/dL (5.8-8.1); Sodium 139 mmol/L (136-145)
[2023-10-18 06:36] LABS: Hematocrit 32.2 % (36.0-47.0); Hemoglobin 9.4 g/dL (12.0-16.0); Mean Corpuscular HGB CONC 29.2 g/dL (32.0-36.0); Mean Corpuscular Hemoglobin 25.1 pg (27.0-31.0); Mean Corpuscular Volume 86.1 fl (78.0-98.0); Mean Platelet Volume 9.6 fL (7.4-10.4); Platelet Count 177 10x3/uL (130-400); Red Blood Cell (RBC) Count 3.73 mill/uL (4.20-5.40); White Blood Cell (WBC) Count 5.8 10x3/uL (4.8-10.8)
[2023-10-18 06:40] LABS: Band 2 % (5-11); Eosinophils 1 % (0-10); MDiff Complete? YES; Manual Diff?? YES; Monocytes 9 % (0-10); Neutrophil 57 % (42-75)
[2023-10-18 06:42] LABS: Anisocytosis SLIGHT = 6-15 cells (100X) (0-5/hpf); Lymphocytes 31 % (21-51); Platelet Adequacy Comment Appears Adequate
[2023-10-18] MEDS: Cefepime 1 GM in Sodium Chloride 0.9% 100 ML IVPB SCH ×2 (09:19→21:08)
[2023-10-18] MEDS: Ezetimibe 10 MG TAB PO SCH (09:20)
[2023-10-18] MEDS: Saccharomyces boulardii 250 MG CAP PO SCH (09:20)
[2023-10-18] MEDS: Cyclobenzaprine 10 MG TAB PO SCH (09:20)
[2023-10-18] MEDS: Magnesium Oxide 400 MG TAB PO SCH (09:20)
[2023-10-18] MEDS: guaiFENesin/DM ER PO SCH ×2 (09:20→21:10)
[2023-10-18] MEDS: Aspirin Chewable 81 MG TAB PO SCH (09:20)
[2023-10-18] MEDS: Empagliflozin 10 MG TAB PO SCH (09:20)
[2023-10-18] MEDS: Furosemide 40 MG TAB PO SCH (09:20)
[2023-10-18] MEDS: Potassium Chloride 20 MEQ TAB PO SCH (09:20)
[2023-10-18] MEDS: Bisoprolol Fumarate 5 MG TAB PO SCH (09:20)
[2023-10-18] MEDS: Spironolactone 25 MG TAB PO SCH (09:20)
[2023-10-18] MEDS: Ranolazine 500 MG ER.TAB PO SCH ×2 (09:21→21:11)
[2023-10-18] MEDS: Leflunomide 10 mg Tablet PO SCH (09:21)
[2023-10-18] MEDS: Prasugrel 10 MG TAB PO SCH (09:21)
[2023-10-18] MEDS: DULoxetine 20 MG CAP PO SCH (09:21)
[2023-10-18] MEDS: Hydroxychloroquine Sulfate 200 MG TAB PO SCH ×2 (09:32→21:10)
[2023-10-18] MEDS: Enoxaparin 40 MG (0.4 mL) SYRINGE SC SCH (21:09)
[2023-10-18] MEDS: Rosuvastatin 10 MG TAB PO SCH (21:11)
[2023-10-19] MEDS: Vancomycin HCl 125 MG Capsule PO SCH ×4 (05:04→23:22)
[2023-10-19] MEDS: Prasugrel 10 MG TAB PO SCH (08:54)
[2023-10-19] MEDS: DULoxetine 20 MG CAP PO SCH (08:54)
[2023-10-19] MEDS: Cyclobenzaprine 10 MG TAB PO SCH (08:54)
[2023-10-19] MEDS: Ranolazine 500 MG ER.TAB PO SCH ×2 (08:54→20:11)
[2023-10-19] MEDS: Leflunomide 10 mg Tablet PO SCH (08:54)
[2023-10-19] MEDS: Ezetimibe 10 MG TAB PO SCH (08:54)
[2023-10-19] MEDS: Hydroxychloroquine Sulfate 200 MG TAB PO SCH ×2 (08:54→20:10)
[2023-10-19] MEDS: Magnesium Oxide 400 MG TAB PO SCH (08:54)
[2023-10-19] MEDS: Potassium Chloride 20 MEQ TAB PO SCH (08:54)
[2023-10-19] MEDS: Saccharomyces boulardii 250 MG CAP PO SCH (08:54)
[2023-10-19] MEDS: Aspirin Chewable 81 MG TAB PO SCH (08:54)
[2023-10-19] MEDS: guaiFENesin/DM ER PO SCH ×2 (08:54→20:11)
[2023-10-19] MEDS: Cefepime 1 GM in Sodium Chloride 0.9% 100 ML IVPB SCH ×2 (08:55→20:16)
[2023-10-19] MEDS: Empagliflozin 10 MG TAB PO SCH (08:55)
[2023-10-19] MEDS: Spironolactone 25 MG TAB PO SCH (09:34)
[2023-10-19] MEDS: Bisoprolol Fumarate 5 MG TAB PO SCH (09:34)
[2023-10-19] MEDS: Furosemide 40 MG TAB PO SCH (09:34)
[2023-10-19] MEDS: Rosuvastatin 10 MG TAB PO SCH (20:10)
[2023-10-19] MEDS: Enoxaparin 40 MG (0.4 mL) SYRINGE SC SCH (20:16)
[2023-10-20] MEDS: Vancomycin HCl 125 MG Capsule PO SCH ×4 (05:15→23:43)
[2023-10-20] MEDS: guaiFENesin/DM ER PO SCH ×2 (08:50→20:33)
[2023-10-20] MEDS: Bisoprolol Fumarate 5 MG TAB PO SCH (08:50)
[2023-10-20] MEDS: Saccharomyces boulardii 250 MG CAP PO SCH (08:50)
[2023-10-20] MEDS: Furosemide 40 MG TAB PO SCH (08:50)
[2023-10-20] MEDS: Cyclobenzaprine 10 MG TAB PO SCH (08:50)
[2023-10-20] MEDS: Prasugrel 10 MG TAB PO SCH (08:50)
[2023-10-20] MEDS: Ezetimibe 10 MG TAB PO SCH (08:50)
[2023-10-20] MEDS: DULoxetine 20 MG CAP PO SCH (08:50)
[2023-10-20] MEDS: Potassium Chloride 20 MEQ TAB PO SCH (08:50)
[2023-10-20] MEDS: Empagliflozin 10 MG TAB PO SCH (08:50)
[2023-10-20] MEDS: Hydroxychloroquine Sulfate 200 MG TAB PO SCH ×2 (08:50→20:33)
[2023-10-20] MEDS: Cefepime 1 GM in Sodium Chloride 0.9% 100 ML IVPB SCH ×2 (08:51→20:34)
[2023-10-20] MEDS: Magnesium Oxide 400 MG TAB PO SCH (08:51)
[2023-10-20] MEDS: Ranolazine 500 MG ER.TAB PO SCH ×2 (08:51→20:35)
[2023-10-20] MEDS: Spironolactone 25 MG TAB PO SCH (08:51)
[2023-10-20] MEDS: Leflunomide 10 mg Tablet PO SCH (08:51)
[2023-10-20] MEDS: Aspirin Chewable 81 MG TAB PO SCH (08:51)
[2023-10-20] MEDS: Mag-Al Plus 1200/1200/120 MG (30 mL) UDCUP PO PRN (09:05)
[2023-10-20] MEDS: Rosuvastatin 10 MG TAB PO SCH (20:33)
[2023-10-20] MEDS: Enoxaparin 40 MG (0.4 mL) SYRINGE SC SCH (21:01)
[2023-10-21] MEDS: Vancomycin HCl 125 MG Capsule PO SCH ×4 (05:01→23:14)
[2023-10-21] MEDS: Magnesium Oxide 400 MG TAB PO SCH (08:54)
[2023-10-21] MEDS: Saccharomyces boulardii 250 MG CAP PO SCH (08:54)
[2023-10-21] MEDS: Spironolactone 25 MG TAB PO SCH (08:54)
[2023-10-21] MEDS: Ranolazine 500 MG ER.TAB PO SCH ×2 (08:54→20:31)
[2023-10-21] MEDS: Ezetimibe 10 MG TAB PO SCH (08:54)
[2023-10-21] MEDS: DULoxetine 20 MG CAP PO SCH (08:54)
[2023-10-21] MEDS: Furosemide 40 MG TAB PO SCH (08:54)
[2023-10-21] MEDS: Cyclobenzaprine 10 MG TAB PO SCH (08:54)
[2023-10-21] MEDS: Potassium Chloride 20 MEQ TAB PO SCH (08:54)
[2023-10-21] MEDS: Hydroxychloroquine Sulfate 200 MG TAB PO SCH ×2 (08:55→20:31)
[2023-10-21] MEDS: Leflunomide 10 mg Tablet PO SCH (08:55)
[2023-10-21] MEDS: Aspirin Chewable 81 MG TAB PO SCH (08:55)
[2023-10-21] MEDS: guaiFENesin/DM ER PO SCH ×2 (08:55→20:31)
[2023-10-21] MEDS: Empagliflozin 10 MG TAB PO SCH (08:55)
[2023-10-21] MEDS: Prasugrel 10 MG TAB PO SCH (08:55)
[2023-10-21] MEDS: Bisoprolol Fumarate 5 MG TAB PO SCH (08:55)
[2023-10-21] MEDS: Cefepime 1 GM in Sodium Chloride 0.9% 100 ML IVPB SCH ×2 (08:56→20:30)
[2023-10-21] MEDS: Ondansetron ODT 4 MG TAB SL PRN (09:37)
[2023-10-21] MEDS: Enoxaparin 40 MG (0.4 mL) SYRINGE SC SCH (20:31)
[2023-10-21] MEDS: Rosuvastatin 10 MG TAB PO SCH (20:31)
[2023-10-22] MEDS: Vancomycin HCl 125 MG Capsule PO SCH ×4 (05:47→23:18)
[2023-10-22] MEDS: Furosemide 40 MG TAB PO SCH (08:52)
[2023-10-22] MEDS: Ezetimibe 10 MG TAB PO SCH (08:52)
[2023-10-22] MEDS: Leflunomide 10 mg Tablet PO SCH (08:52)
[2023-10-22] MEDS: Bisoprolol Fumarate 5 MG TAB PO SCH (08:52)
[2023-10-22] MEDS: Prasugrel 10 MG TAB PO SCH (08:52)
[2023-10-22] MEDS: Hydroxychloroquine Sulfate 200 MG TAB PO SCH ×2 (08:52→20:22)
[2023-10-22] MEDS: Aspirin Chewable 81 MG TAB PO SCH (08:52)
[2023-10-22] MEDS: Magnesium Oxide 400 MG TAB PO SCH (08:53)
[2023-10-22] MEDS: Ranolazine 500 MG ER.TAB PO SCH ×2 (08:53→20:23)
[2023-10-22] MEDS: Saccharomyces boulardii 250 MG CAP PO SCH (08:53)
[2023-10-22] MEDS: Empagliflozin 10 MG TAB PO SCH (08:53)
[2023-10-22] MEDS: Spironolactone 25 MG TAB PO SCH (08:53)
[2023-10-22] MEDS: guaiFENesin/DM ER PO SCH ×2 (08:53→20:22)
[2023-10-22] MEDS: Cyclobenzaprine 10 MG TAB PO SCH (08:53)
[2023-10-22] MEDS: Potassium Chloride 20 MEQ TAB PO SCH (08:53)
[2023-10-22] MEDS: Cefepime 1 GM in Sodium Chloride 0.9% 100 ML IVPB SCH ×2 (08:54→20:23)
[2023-10-22] MEDS: DULoxetine 20 MG CAP PO SCH (08:58)
[2023-10-22] MEDS: Mag-Al Plus 1200/1200/120 MG (30 mL) UDCUP PO PRN (17:53)
[2023-10-22] MEDS: Rosuvastatin 10 MG TAB PO SCH (20:22)
[2023-10-22] MEDS: Enoxaparin 40 MG (0.4 mL) SYRINGE SC SCH (20:23)
[2023-10-23] MEDS: Vancomycin HCl 125 MG Capsule PO SCH ×3 (05:32→17:39)
[2023-10-23] MEDS: Acetaminophen 500 MG TAB PO PRN (05:32)
[2023-10-23] MEDS: Magnesium Oxide 400 MG TAB PO SCH (09:23)
[2023-10-23] MEDS: Leflunomide 10 mg Tablet PO SCH (09:23)
[2023-10-23] MEDS: Aspirin Chewable 81 MG TAB PO SCH (09:23)
[2023-10-23] MEDS: Cyclobenzaprine 10 MG TAB PO SCH (09:23)
[2023-10-23] MEDS: DULoxetine 20 MG CAP PO SCH (09:23)
[2023-10-23] MEDS: Ranolazine 500 MG ER.TAB PO SCH ×2 (09:23→20:42)
[2023-10-23] MEDS: Saccharomyces boulardii 250 MG CAP PO SCH (09:23)
[2023-10-23] MEDS: Ezetimibe 10 MG TAB PO SCH (09:23)
[2023-10-23] MEDS: guaiFENesin/DM ER PO SCH ×2 (09:23→20:42)
[2023-10-23] MEDS: Cefepime 1 GM in Sodium Chloride 0.9% 100 ML IVPB SCH ×2 (09:23→20:41)
[2023-10-23] MEDS: Hydroxychloroquine Sulfate 200 MG TAB PO SCH ×2 (09:24→20:42)
[2023-10-23] MEDS: Bisoprolol Fumarate 5 MG TAB PO SCH (09:24)
[2023-10-23] MEDS: Spironolactone 25 MG TAB PO SCH (09:24)
[2023-10-23] MEDS: Potassium Chloride 20 MEQ TAB PO SCH (09:24)
[2023-10-23] MEDS: Prasugrel 10 MG TAB PO SCH (09:24)
[2023-10-23] MEDS: Furosemide 40 MG TAB PO SCH (09:24)
[2023-10-23] MEDS: Empagliflozin 10 MG TAB PO SCH (09:24)
[2023-10-23] MEDS: Mag-Al Plus 1200/1200/120 MG (30 mL) UDCUP PO PRN (17:59)
[2023-10-23] MEDS: Enoxaparin 40 MG (0.4 mL) SYRINGE SC SCH (20:42)
[2023-10-23] MEDS: Ondansetron ODT 4 MG TAB SL PRN (20:42)
[2023-10-23] MEDS: Rosuvastatin 10 MG TAB PO SCH (20:42)
[2023-10-24] MEDS: Vancomycin HCl 125 MG Capsule PO SCH ×5 (00:18→23:31)
[2023-10-24] MEDS: Cefepime 1 GM in Sodium Chloride 0.9% 100 ML IVPB SCH ×2 (09:12→20:18)
[2023-10-24] MEDS: Cyclobenzaprine 10 MG TAB PO SCH (09:13)
[2023-10-24] MEDS: Aspirin Chewable 81 MG TAB PO SCH (09:13)
[2023-10-24] MEDS: Furosemide 40 MG TAB PO SCH (09:13)
[2023-10-24] MEDS: Ranolazine 500 MG ER.TAB PO SCH ×2 (09:13→20:17)
[2023-10-24] MEDS: Potassium Chloride 20 MEQ TAB PO SCH (09:13)
[2023-10-24] MEDS: Ezetimibe 10 MG TAB PO SCH (09:13)
[2023-10-24] MEDS: Leflunomide 10 mg Tablet PO SCH (09:13)
[2023-10-24] MEDS: Bisoprolol Fumarate 5 MG TAB PO SCH (09:13)
[2023-10-24] MEDS: Empagliflozin 10 MG TAB PO SCH (09:13)
[2023-10-24] MEDS: Prasugrel 10 MG TAB PO SCH (09:13)
[2023-10-24] MEDS: guaiFENesin/DM ER PO SCH ×2 (09:13→20:17)
[2023-10-24] MEDS: Spironolactone 25 MG TAB PO SCH (09:13)
[2023-10-24] MEDS: Hydroxychloroquine Sulfate 200 MG TAB PO SCH ×2 (09:13→20:17)
[2023-10-24] MEDS: Saccharomyces boulardii 250 MG CAP PO SCH (09:13)
[2023-10-24] MEDS: Magnesium Oxide 400 MG TAB PO SCH (09:14)
[2023-10-24] MEDS: DULoxetine 20 MG CAP PO SCH (09:14)
[2023-10-24 13:30] VITALS: BMI 24.4
[2023-10-24] MEDS: Rosuvastatin 10 MG TAB PO SCH (20:17)
[2023-10-24] MEDS: Enoxaparin 40 MG (0.4 mL) SYRINGE SC SCH (20:17)
[2023-10-24] MEDS: Mag-Al Plus 1200/1200/120 MG (30 mL) UDCUP PO PRN (20:24)
[2023-10-25] MEDS: Vancomycin HCl 125 MG Capsule PO SCH ×3 (05:17→17:33)
[2023-10-25 05:50] LABS: Hematocrit 35.9 % (36.0-47.0); Hemoglobin 10.3 g/dL (12.0-16.0); Mean Corpuscular HGB CONC 28.6 g/dL (32.0-36.0); Mean Corpuscular Hemoglobin 24.8 pg (27.0-31.0); Mean Corpuscular Volume 86.9 fl (78.0-98.0); Mean Platelet Volume 9.3 fL (7.4-10.4); Platelet Count 160 10x3/uL (130-400); RBC Distribution Width 20.7 % (11.5-14.5); Red Blood Cell (RBC) Count 4.13 mill/uL (4.20-5.40); White Blood Cell (WBC) Count 6.4 10x3/uL (4.8-10.8)
[2023-10-25 06:07] LABS: Anion Gap 13 mmol/L (10-20); BUN (Urea Nitrogen) 21 mg/dL (9.8-20.1); CRP (Inflammatory) Less than 0.50 mg/dL (= or < 0.5); Calc. Creatinine Clearance 53 mL/min (70-130); Calcium 9.1 mg/dL (7.8-10.44); Carbon Dioxide 21 mmol/L (23-31); Chloride 107 mmol/L (98-107); Estimated GFR 61; Glucose 188 mg/dL (80-115); Potassium 4.5 mmol/L (3.5-5.1); Sodium 136 mmol/L (136-145)
[2023-10-25] MEDS: Cefepime 1 GM in Sodium Chloride 0.9% 100 ML IVPB SCH ×2 (08:03→21:05)
[2023-10-25] MEDS: Saccharomyces boulardii 250 MG CAP PO SCH (08:04)
[2023-10-25] MEDS: Leflunomide 10 mg Tablet PO SCH (08:04)
[2023-10-25] MEDS: Ranolazine 500 MG ER.TAB PO SCH ×2 (08:04→21:07)
[2023-10-25] MEDS: Furosemide 40 MG TAB PO SCH (08:05)
[2023-10-25] MEDS: Prasugrel 10 MG TAB PO SCH (08:05)
[2023-10-25] MEDS: Bisoprolol Fumarate 5 MG TAB PO SCH (08:05)
[2023-10-25] MEDS: Aspirin Chewable 81 MG TAB PO SCH (08:05)
[2023-10-25] MEDS: Potassium Chloride 20 MEQ TAB PO SCH (08:05)
[2023-10-25] MEDS: Magnesium Oxide 400 MG TAB PO SCH (08:05)
[2023-10-25] MEDS: Spironolactone 25 MG TAB PO SCH (08:05)
[2023-10-25] MEDS: Ezetimibe 10 MG TAB PO SCH (08:05)
[2023-10-25] MEDS: DULoxetine 20 MG CAP PO SCH (08:05)
[2023-10-25] MEDS: Empagliflozin 10 MG TAB PO SCH (08:06)
[2023-10-25] MEDS: Cyclobenzaprine 10 MG TAB PO SCH (08:06)
[2023-10-25] MEDS: Hydroxychloroquine Sulfate 200 MG TAB PO SCH ×2 (08:06→21:07)
[2023-10-25] MEDS: guaiFENesin/DM ER PO SCH ×2 (08:06→21:07)
[2023-10-25] MEDS: Enoxaparin 40 MG (0.4 mL) SYRINGE SC SCH (21:06)
[2023-10-25] MEDS: Rosuvastatin 10 MG TAB PO SCH (21:07)
[2023-10-25] MEDS: Mag-Al Plus 1200/1200/120 MG (30 mL) UDCUP PO PRN (21:19)
[2023-10-26] MEDS: Vancomycin HCl 125 MG Capsule PO SCH ×4 (00:58→17:36)
[2023-10-26] MEDS: Mag-Al Plus 1200/1200/120 MG (30 mL) UDCUP PO PRN (08:00)
[2023-10-26] MEDS: Leflunomide 10 mg Tablet PO SCH (08:05)
[2023-10-26] MEDS: Cefepime 1 GM in Sodium Chloride 0.9% 100 ML IVPB SCH ×2 (08:05→20:52)
[2023-10-26] MEDS: Furosemide 40 MG TAB PO SCH (08:06)
[2023-10-26] MEDS: DULoxetine 20 MG CAP PO SCH (08:06)
[2023-10-26] MEDS: Bisoprolol Fumarate 5 MG TAB PO SCH (08:06)
[2023-10-26] MEDS: Cyclobenzaprine 10 MG TAB PO SCH (08:06)
[2023-10-26] MEDS: Prasugrel 10 MG TAB PO SCH (08:06)
[2023-10-26] MEDS: Ezetimibe 10 MG TAB PO SCH (08:06)
[2023-10-26] MEDS: Ranolazine 500 MG ER.TAB PO SCH ×2 (08:06→20:49)
[2023-10-26] MEDS: guaiFENesin/DM ER PO SCH ×2 (08:06→20:49)
[2023-10-26] MEDS: Hydroxychloroquine Sulfate 200 MG TAB PO SCH ×2 (08:06→20:49)
[2023-10-26] MEDS: Spironolactone 25 MG TAB PO SCH (08:06)
[2023-10-26] MEDS: Potassium Chloride 20 MEQ TAB PO SCH (08:06)
[2023-10-26] MEDS: Aspirin Chewable 81 MG TAB PO SCH (08:06)
[2023-10-26] MEDS: Saccharomyces boulardii 250 MG CAP PO SCH (08:06)
[2023-10-26] MEDS: Magnesium Oxide 400 MG TAB PO SCH (08:06)
[2023-10-26] MEDS: Empagliflozin 10 MG TAB PO SCH (08:08)
[2023-10-26] MEDS: Ondansetron ODT 4 MG TAB SL PRN ×2 (09:01→17:37)
[2023-10-26] MEDS: Rosuvastatin 10 MG TAB PO SCH (20:49)
[2023-10-26] MEDS: Enoxaparin 40 MG (0.4 mL) SYRINGE SC SCH (20:52)
[2023-10-27] MEDS: Vancomycin HCl 125 MG Capsule PO SCH ×5 (00:37→23:53)
[2023-10-27] MEDS: Ranolazine 500 MG ER.TAB PO SCH ×2 (09:20→20:33)
[2023-10-27] MEDS: Bisoprolol Fumarate 5 MG TAB PO SCH (09:20)
[2023-10-27] MEDS: Hydroxychloroquine Sulfate 200 MG TAB PO SCH ×2 (09:20→20:33)
[2023-10-27] MEDS: Saccharomyces boulardii 250 MG CAP PO SCH (09:20)
[2023-10-27] MEDS: Leflunomide 10 mg Tablet PO SCH (09:20)
[2023-10-27] MEDS: Empagliflozin 10 MG TAB PO SCH (09:20)
[2023-10-27] MEDS: Cefepime 1 GM in Sodium Chloride 0.9% 100 ML IVPB SCH ×2 (09:20→20:34)
[2023-10-27] MEDS: guaiFENesin/DM ER PO SCH ×2 (09:20→20:33)
[2023-10-27] MEDS: Ezetimibe 10 MG TAB PO SCH (09:20)
[2023-10-27] MEDS: Spironolactone 25 MG TAB PO SCH (09:21)
[2023-10-27] MEDS: Potassium Chloride 20 MEQ TAB PO SCH (09:21)
[2023-10-27] MEDS: DULoxetine 20 MG CAP PO SCH (09:21)
[2023-10-27] MEDS: Prasugrel 10 MG TAB PO SCH (09:21)
[2023-10-27] MEDS: Cyclobenzaprine 10 MG TAB PO SCH (09:21)
[2023-10-27] MEDS: Magnesium Oxide 400 MG TAB PO SCH (09:22)
[2023-10-27] MEDS: Furosemide 40 MG TAB PO SCH (09:22)
[2023-10-27] MEDS: Aspirin Chewable 81 MG TAB PO SCH (09:24)
[2023-10-27] MEDS: Rosuvastatin 10 MG TAB PO SCH (20:33)
[2023-10-27] MEDS: Enoxaparin 40 MG (0.4 mL) SYRINGE SC SCH (20:33)
[2023-10-28] MEDS: Vancomycin HCl 125 MG Capsule PO SCH ×4 (05:46→23:43)
[2023-10-28] MEDS: Cefepime 1 GM in Sodium Chloride 0.9% 100 ML IVPB SCH ×2 (08:57→20:25)
[2023-10-28] MEDS: DULoxetine 20 MG CAP PO SCH (09:05)
[2023-10-28] MEDS: Furosemide 40 MG TAB PO SCH (09:05)
[2023-10-28] MEDS: Prasugrel 10 MG TAB PO SCH (09:05)
[2023-10-28] MEDS: Magnesium Oxide 400 MG TAB PO SCH (09:05)
[2023-10-28] MEDS: Ezetimibe 10 MG TAB PO SCH (09:05)
[2023-10-28] MEDS: Hydroxychloroquine Sulfate 200 MG TAB PO SCH ×2 (09:05→20:25)
[2023-10-28] MEDS: Spironolactone 25 MG TAB PO SCH (09:05)
[2023-10-28] MEDS: Ranolazine 500 MG ER.TAB PO SCH ×2 (09:05→20:25)
[2023-10-28] MEDS: Cyclobenzaprine 10 MG TAB PO SCH (09:05)
[2023-10-28] MEDS: Saccharomyces boulardii 250 MG CAP PO SCH (09:05)
[2023-10-28] MEDS: Bisoprolol Fumarate 5 MG TAB PO SCH (09:05)
[2023-10-28] MEDS: guaiFENesin/DM ER PO SCH ×2 (09:05→20:25)
[2023-10-28] MEDS: Potassium Chloride 20 MEQ TAB PO SCH (09:05)
[2023-10-28] MEDS: Aspirin Chewable 81 MG TAB PO SCH (09:05)
[2023-10-28] MEDS: Empagliflozin 10 MG TAB PO SCH (09:05)
[2023-10-28] MEDS: Leflunomide 10 mg Tablet PO SCH (09:06)
[2023-10-28] MEDS: Enoxaparin 40 MG (0.4 mL) SYRINGE SC SCH (20:25)
[2023-10-28] MEDS: Rosuvastatin 10 MG TAB PO SCH (20:25)
[2023-10-28] MEDS: Mag-Al Plus 1200/1200/120 MG (30 mL) UDCUP PO PRN (21:26)
[2023-10-29] MEDS: Vancomycin HCl 125 MG Capsule PO SCH ×4 (05:17→23:38)
[2023-10-29] MEDS: Aspirin Chewable 81 MG TAB PO SCH (08:38)
[2023-10-29] MEDS: Bisoprolol Fumarate 5 MG TAB PO SCH (08:39)
[2023-10-29] MEDS: Leflunomide 10 mg Tablet PO SCH (08:39)
[2023-10-29] MEDS: Prasugrel 10 MG TAB PO SCH (08:39)
[2023-10-29] MEDS: guaiFENesin/DM ER PO SCH ×2 (08:39→20:54)
[2023-10-29] MEDS: Cyclobenzaprine 10 MG TAB PO SCH (08:39)
[2023-10-29] MEDS: Hydroxychloroquine Sulfate 200 MG TAB PO SCH ×2 (08:39→20:54)
[2023-10-29] MEDS: Magnesium Oxide 400 MG TAB PO SCH (08:39)
[2023-10-29] MEDS: Saccharomyces boulardii 250 MG CAP PO SCH (08:39)
[2023-10-29] MEDS: Furosemide 40 MG TAB PO SCH (08:39)
[2023-10-29] MEDS: Spironolactone 25 MG TAB PO SCH (08:40)
[2023-10-29] MEDS: Ezetimibe 10 MG TAB PO SCH (08:40)
[2023-10-29] MEDS: Cefepime 1 GM in Sodium Chloride 0.9% 100 ML IVPB SCH ×2 (08:40→20:55)
[2023-10-29] MEDS: Empagliflozin 10 MG TAB PO SCH (08:40)
[2023-10-29] MEDS: Ranolazine 500 MG ER.TAB PO SCH ×2 (08:40→20:54)
[2023-10-29] MEDS: Potassium Chloride 20 MEQ TAB PO SCH (08:40)
[2023-10-29] MEDS: DULoxetine 20 MG CAP PO SCH (08:41)
[2023-10-29] MEDS: Rosuvastatin 10 MG TAB PO SCH (20:54)
[2023-10-29] MEDS: Enoxaparin 40 MG (0.4 mL) SYRINGE SC SCH (20:55)
[2023-10-30] MEDS: Vancomycin HCl 125 MG Capsule PO SCH ×4 (05:52→23:16)
[2023-10-30] MEDS: Cefepime 1 GM in Sodium Chloride 0.9% 100 ML IVPB SCH ×2 (08:15→20:29)
[2023-10-30] MEDS: guaiFENesin/DM ER PO SCH ×2 (08:20→20:30)
[2023-10-30] MEDS: Aspirin Chewable 81 MG TAB PO SCH (08:20)
[2023-10-30] MEDS: Empagliflozin 10 MG TAB PO SCH (08:21)
[2023-10-30] MEDS: Hydroxychloroquine Sulfate 200 MG TAB PO SCH ×2 (08:21→20:30)
[2023-10-30] MEDS: Potassium Chloride 20 MEQ TAB PO SCH (08:21)
[2023-10-30] MEDS: Bisoprolol Fumarate 5 MG TAB PO SCH (08:21)
[2023-10-30] MEDS: Ranolazine 500 MG ER.TAB PO SCH ×2 (08:21→20:30)
[2023-10-30] MEDS: Saccharomyces boulardii 250 MG CAP PO SCH (08:21)
[2023-10-30] MEDS: Ezetimibe 10 MG TAB PO SCH (08:21)
[2023-10-30] MEDS: Cyclobenzaprine 10 MG TAB PO SCH (08:21)
[2023-10-30] MEDS: Prasugrel 10 MG TAB PO SCH (08:21)
[2023-10-30] MEDS: Magnesium Oxide 400 MG TAB PO SCH (08:21)
[2023-10-30] MEDS: DULoxetine 20 MG CAP PO SCH (08:21)
[2023-10-30] MEDS: Leflunomide 10 mg Tablet PO SCH (08:21)
[2023-10-30] MEDS: Furosemide 40 MG TAB PO SCH (08:22)
[2023-10-30] MEDS: Spironolactone 25 MG TAB PO SCH (08:22)
[2023-10-30] MEDS: Enoxaparin 40 MG (0.4 mL) SYRINGE SC SCH (20:30)
[2023-10-30] MEDS: Rosuvastatin 10 MG TAB PO SCH (20:30)
[2023-10-31] MEDS: Vancomycin HCl 125 MG Capsule PO SCH ×3 (04:59→17:19)
[2023-10-31] MEDS: Leflunomide 10 mg Tablet PO SCH (08:39)
[2023-10-31] MEDS: Potassium Chloride 20 MEQ TAB PO SCH (08:39)
[2023-10-31] MEDS: Hydroxychloroquine Sulfate 200 MG TAB PO SCH ×2 (08:39→20:43)
[2023-10-31] MEDS: Cefepime 1 GM in Sodium Chloride 0.9% 100 ML IVPB SCH ×2 (08:39→20:43)
[2023-10-31] MEDS: Bisoprolol Fumarate 5 MG TAB PO SCH (08:40)
[2023-10-31] MEDS: guaiFENesin/DM ER PO SCH ×2 (08:40→20:43)
[2023-10-31] MEDS: Cyclobenzaprine 10 MG TAB PO SCH (08:40)
[2023-10-31] MEDS: Spironolactone 25 MG TAB PO SCH (08:40)
[2023-10-31] MEDS: Prasugrel 10 MG TAB PO SCH (08:40)
[2023-10-31] MEDS: Aspirin Chewable 81 MG TAB PO SCH (08:40)
[2023-10-31] MEDS: Ranolazine 500 MG ER.TAB PO SCH ×2 (08:40→20:43)
[2023-10-31] MEDS: Magnesium Oxide 400 MG TAB PO SCH (08:40)
[2023-10-31] MEDS: Ezetimibe 10 MG TAB PO SCH (08:40)
[2023-10-31] MEDS: Empagliflozin 10 MG TAB PO SCH (08:40)
[2023-10-31] MEDS: DULoxetine 20 MG CAP PO SCH (08:40)
[2023-10-31] MEDS: Saccharomyces boulardii 250 MG CAP PO SCH (08:41)
[2023-10-31] MEDS: Furosemide 40 MG TAB PO SCH (08:41)
[2023-10-31] MEDS: Rosuvastatin 10 MG TAB PO SCH (20:44)
[2023-11-01] MEDS: Vancomycin HCl 125 MG Capsule PO SCH ×5 (00:02→23:50)
[2023-11-01 05:30] LABS: Hematocrit 34.6 % (36.0-47.0); Hemoglobin 10.2 g/dL (12.0-16.0); Mean Corpuscular HGB CONC 29.5 g/dL (32.0-36.0); Mean Corpuscular Hemoglobin 25.1 pg (27.0-31.0); Mean Corpuscular Volume 85.1 fl (78.0-98.0); Mean Platelet Volume 10.6 fL (7.4-10.4); Platelet Count 158 10x3/uL (130-400); RBC Distribution Width 19.7 % (11.5-14.5); Red Blood Cell (RBC) Count 4.06 mill/uL (4.20-5.40); White Blood Cell (WBC) Count 5.9 10x3/uL (4.8-10.8)
[2023-11-01 05:44] LABS: Anion Gap 13 mmol/L (10-20); BUN (Urea Nitrogen) 27 mg/dL (9.8-20.1); CRP (Inflammatory) Less than 0.50 mg/dL (= or < 0.5); Calc. Creatinine Clearance 48 mL/min (70-130); Calcium 9.3 mg/dL (7.8-10.44); Carbon Dioxide 22 mmol/L (23-31); Chloride 107 mmol/L (98-107); Estimated GFR 53; Glucose 97 mg/dL (80-115); Potassium 4.1 mmol/L (3.5-5.1); Sodium 138 mmol/L (136-145)
[2023-11-01] MEDS: Ezetimibe 10 MG TAB PO SCH (08:09)
[2023-11-01] MEDS: Cyclobenzaprine 10 MG TAB PO SCH (08:09)
[2023-11-01] MEDS: Bisoprolol Fumarate 5 MG TAB PO SCH (08:09)
[2023-11-01] MEDS: guaiFENesin/DM ER PO SCH ×2 (08:09→20:38)
[2023-11-01] MEDS: Aspirin Chewable 81 MG TAB PO SCH (08:09)
[2023-11-01] MEDS: Ranolazine 500 MG ER.TAB PO SCH ×2 (08:09→20:38)
[2023-11-01] MEDS: Cefepime 1 GM in Sodium Chloride 0.9% 100 ML IVPB SCH ×2 (08:09→20:39)
[2023-11-01] MEDS: Spironolactone 25 MG TAB PO SCH (08:09)
[2023-11-01] MEDS: Furosemide 40 MG TAB PO SCH (08:10)
[2023-11-01] MEDS: Leflunomide 10 mg Tablet PO SCH (08:10)
[2023-11-01] MEDS: Magnesium Oxide 400 MG TAB PO SCH (08:10)
[2023-11-01] MEDS: Potassium Chloride 20 MEQ TAB PO SCH (08:10)
[2023-11-01] MEDS: Prasugrel 10 MG TAB PO SCH (08:10)
[2023-11-01] MEDS: Hydroxychloroquine Sulfate 200 MG TAB PO SCH ×2 (08:10→20:38)
[2023-11-01] MEDS: Saccharomyces boulardii 250 MG CAP PO SCH (08:10)
[2023-11-01] MEDS: DULoxetine 20 MG CAP PO SCH (08:10)
[2023-11-01] MEDS: Empagliflozin 10 MG TAB PO SCH (08:11)
[2023-11-01] MEDS: Mag-Al Plus 1200/1200/120 MG (30 mL) UDCUP PO PRN (18:25)
[2023-11-01] MEDS: Rosuvastatin 10 MG TAB PO SCH (20:38)
[2023-11-02] MEDS: Vancomycin HCl 125 MG Capsule PO SCH ×3 (05:39→17:35)
[2023-11-02] MEDS: Leflunomide 10 mg Tablet PO SCH (08:36)
[2023-11-02] MEDS: Magnesium Oxide 400 MG TAB PO SCH (08:37)
[2023-11-02] MEDS: Saccharomyces boulardii 250 MG CAP PO SCH (08:37)
[2023-11-02] MEDS: DULoxetine 20 MG CAP PO SCH (08:37)
[2023-11-02] MEDS: guaiFENesin/DM ER PO SCH ×2 (08:37→21:23)
[2023-11-02] MEDS: Bisoprolol Fumarate 5 MG TAB PO SCH (08:49)
[2023-11-02] MEDS: Aspirin Chewable 81 MG TAB PO SCH (08:49)
[2023-11-02] MEDS: Cefepime 1 GM in Sodium Chloride 0.9% 100 ML IVPB SCH ×2 (08:49→21:23)
[2023-11-02] MEDS: Ezetimibe 10 MG TAB PO SCH (08:50)
[2023-11-02] MEDS: Cyclobenzaprine 10 MG TAB PO SCH (08:50)
[2023-11-02] MEDS: Empagliflozin 10 MG TAB PO SCH (08:50)
[2023-11-02] MEDS: Furosemide 40 MG TAB PO SCH (08:50)
[2023-11-02] MEDS: Ranolazine 500 MG ER.TAB PO SCH ×2 (08:51→21:23)
[2023-11-02] MEDS: Potassium Chloride 20 MEQ TAB PO SCH (08:51)
[2023-11-02] MEDS: Hydroxychloroquine Sulfate 200 MG TAB PO SCH ×2 (08:51→21:23)
[2023-11-02] MEDS: Prasugrel 10 MG TAB PO SCH (08:51)
[2023-11-02] MEDS: Spironolactone 25 MG TAB PO SCH (08:52)
[2023-11-02] MEDS: Rosuvastatin 10 MG TAB PO SCH (21:23)
[2023-11-03] MEDS: Vancomycin HCl 125 MG Capsule PO SCH ×4 (02:12→17:26)
[2023-11-03] MEDS: Saccharomyces boulardii 250 MG CAP PO SCH (08:37)
[2023-11-03] MEDS: Potassium Chloride 20 MEQ TAB PO SCH (08:37)
[2023-11-03] MEDS: Aspirin Chewable 81 MG TAB PO SCH (08:37)
[2023-11-03] MEDS: Cyclobenzaprine 10 MG TAB PO SCH (08:37)
[2023-11-03] MEDS: guaiFENesin/DM ER PO SCH ×2 (08:37→20:51)
[2023-11-03] MEDS: Furosemide 40 MG TAB PO SCH (08:37)
[2023-11-03] MEDS: Leflunomide 10 mg Tablet PO SCH (08:38)
[2023-11-03] MEDS: Bisoprolol Fumarate 5 MG TAB PO SCH (08:38)
[2023-11-03] MEDS: Hydroxychloroquine Sulfate 200 MG TAB PO SCH ×2 (08:38→20:51)
[2023-11-03] MEDS: Ezetimibe 10 MG TAB PO SCH (08:38)
[2023-11-03] MEDS: Prasugrel 10 MG TAB PO SCH (08:38)
[2023-11-03] MEDS: Ranolazine 500 MG ER.TAB PO SCH ×2 (08:38→20:51)
[2023-11-03] MEDS: DULoxetine 20 MG CAP PO SCH (08:38)
[2023-11-03] MEDS: Magnesium Oxide 400 MG TAB PO SCH (08:38)
[2023-11-03] MEDS: Cefepime 1 GM in Sodium Chloride 0.9% 100 ML IVPB SCH ×2 (08:40→20:50)
[2023-11-03] MEDS: Empagliflozin 10 MG TAB PO SCH (08:40)
[2023-11-03] MEDS: Spironolactone 25 MG TAB PO SCH (08:41)
[2023-11-03] MEDS: Rosuvastatin 10 MG TAB PO SCH (20:51)
[2023-11-04] MEDS: Vancomycin HCl 125 MG Capsule PO SCH ×2 (00:34→05:08)
[2023-11-04 07:26] VITALS: BP 116/66; TEMP 97.8
[2023-11-04] MEDS: Bisoprolol Fumarate 5 MG TAB PO SCH (08:10)
[2023-11-04] MEDS: Hydroxychloroquine Sulfate 200 MG TAB PO SCH (08:10)
[2023-11-04] MEDS: Cyclobenzaprine 10 MG TAB PO SCH (08:10)
[2023-11-04] MEDS: Magnesium Oxide 400 MG TAB PO SCH (08:11)
[2023-11-04] MEDS: DULoxetine 20 MG CAP PO SCH (08:11)
[2023-11-04] MEDS: Prasugrel 10 MG TAB PO SCH (08:11)
[2023-11-04] MEDS: Aspirin Chewable 81 MG TAB PO SCH (08:11)
[2023-11-04] MEDS: Leflunomide 10 mg Tablet PO SCH (08:12)
[2023-11-04] MEDS: Saccharomyces boulardii 250 MG CAP PO SCH (08:12)
[2023-11-04] MEDS: Potassium Chloride 20 MEQ TAB PO SCH (08:12)
[2023-11-04] MEDS: Empagliflozin 10 MG TAB PO SCH (08:12)
[2023-11-04] MEDS: guaiFENesin/DM ER PO SCH (08:12)
[2023-11-04] MEDS: Spironolactone 25 MG TAB PO SCH (08:12)
[2023-11-04] MEDS: Ranolazine 500 MG ER.TAB PO SCH (08:12)
[2023-11-04] MEDS: Ezetimibe 10 MG TAB PO SCH (08:12)
[2023-11-04] MEDS: Furosemide 40 MG TAB PO SCH (08:12)
== END 2023-11-04 09:15 | disposition home or self-care (01) | DRG 949 ==
LOC: MADMS 15:50
PROVIDERS: ADMIT Family Medicine; ATTEND Family Medicine
DX: T84.51XD Infection and inflammatory reaction due to internal right hip prosthesis, subsequent encounter (principal); A04.72 Enterocolitis due to Clostridium difficile, not specified as recurrent; S72.001D Fracture of unspecified part of neck of right femur, subsequent encounter for closed fracture with routine healing; I25.10 Atherosclerotic heart disease of native coronary artery without angina pectoris; Z95.1 Presence of aortocoronary bypass graft; I73.9 Peripheral vascular disease, unspecified; I25.5 Ischemic cardiomyopathy; D64.9 Anemia, unspecified; I50.9 Heart failure, unspecified; G62.9 Polyneuropathy, unspecified; M06.9 Rheumatoid arthritis, unspecified; I11.0 Hypertensive heart disease with heart failure; R53.81 Other malaise; B96.5 Pseudomonas (aeruginosa) (mallei) (pseudomallei) as the cause of diseases classified elsewhere; Z96.641 Presence of right artificial hip joint; Z88.5 Allergy status to narcotic agent; Z79.82 Long term (current) use of aspirin; Z79.899 Other long term (current) drug therapy; Z79.2 Long term (current) use of antibiotics; Z87.891 Personal history of nicotine dependence; W18.30XD Fall on same level, unspecified, subsequent encounter
CPT/HCPCS: 36415; 80048; 80053; 85025; 85027; 86140; J0692; J1650; J3490; J7620; Q0162